=== PATIENT | female | born 1950 | race Caucasian/White ===

== ENCOUNTER 2017-09-21 22:37 | Inpatient (IN) | payer MEDICARE, OTHER ==
[~2017-09-21] VITALS: Ht 149.9 cm; Wt 53.7 kg
[~2017-09-21 22:37] MED LIST: ALEN70 PO; ASPI81CH PO; ASPI81EC PO; CALCAVITD PO; CENTRUM SILVER1 EAC2 PO; ERGO50000 PO; HYDCHL25 PO; MULVITMINF PO; OMEP20ER PO; POTCHL20ER PO; SIMV40 PO; VERA180ERA PO; Verapamil ER200 MG PO
[2017-09-21] MEDS ORDERED: ALEN70 PO (23:11)
[2017-09-21] MEDS ORDERED: FISH OIL + D31 EACH (23:11)
[2017-09-21] MEDS ORDERED: LOSA25 PO (23:11)
[2017-09-21 23:17] LABS: BASOPHILS ABSOLUTE AUTO 0.04 K/mm3 (0.00-0.23); BASOPHILS PERCENT AUTO 0 % (0-2); EOSINOPHILS ABSOLUTE AUTO 0.01 K/mm3 (0.00-0.68); EOSINOPHILS PERCENT AUTO 0 % (0-6); Hemoglobin 15.8 g/dL (11.5-16.0); IMMATURE GRAN ABSOLUTE AUTO 0.06 K/mm3 (0.00-0.10); IMMATURE GRAN PERCENT AUTO 1 % (0-1); LYMPHOCYTES ABSOLUTE AUTO 0.95 K/mm3 (0.84-5.20); LYMPHOCYTES PERCENT AUTO 7 % (21-46); MONOCYTES ABSOLUTE AUTO 0.72 K/mm3 (0.16-1.47); MONOCYTES PERCENT AUTO 6 % (4-13); Mean Corpuscular HGB 32.1 pg (26.0-34.0); Mean Corpuscular HGB Conc 35.9 g/dL (31.5-36.5); Mean Corpuscular Volume 89 fL (80-100); Mean Platelet Volume 9.1 fL (9.1-12.4); NEUTROPHILS ABSOLUTE AUTO 11.35 K/mm3 (1.96-9.15); NEUTROPHILS PERCENT AUTO 86 % (41-73); Platelet Count 337 K/mm3 (150-400); RDW Coefficient Variation 11.2 % (11.7-14.2); RDW Standard Deviation 36.4 fL (35.1-46.3); Red Blood Cell Count 4.92 M/mm3 (3.80-5.20); White Blood Cell Count 13.13 K/mm3 (4.00-11.30)
[2017-09-21 23:31] LABS: Alanine Aminotransfer (ALT/SGP 397 U/L (12-78); Albumin, Blood 3.8 g/dL (3.4-5.0); Albumin/Globulin Ratio 0.8 (0.8-1.8); Alk Phos 137 U/L (50-136); Anion Gap 14 mmol/L (6-16); Aspartate Aminotrans (AST/SGOT 364 U/L (12-37); Bilirubin, Total 1.9 mg/dL (0.1-1.0); Blood Urea Nitrogen 14 mg/dL (8-24); Bun/Creatinine Ratio 23.9 (12.0-20.0); CO2, Blood 16 mmol/L (21-32); Chloride, Blood 102 mmol/L (98-108); Creatinine, Blood 0.59 mg/dL (0.40-1.00); Globulin, Blood 4.5 g/dL (2.2-4.0); Glomerular Filtration Rate >60 (60-); Glucose, Blood 134 mg/dL (70-99); Potassium, Blood 4.3 mmol/L (3.5-5.5); Sodium, Blood 132 mmol/L (136-145); Total Protein, Blood 8.3 g/dL (6.4-8.2); Troponin I <0.015 ng/mL (0.000-0.040)
[2017-09-22 01:35] LABS: Source, Urine Clean Catch
[2017-09-22 01:38] LABS: Bilirubin, Urine Neg (Neg); Blood, Urine 1+ (Neg); Glucose Qualitative, Urine Neg (Neg); Ketones, Urine 3+ (Neg); Leukocyte Esterase, Urine 1+ (Neg); Nitrite, Urine Neg (Neg); Protein, Urine 2+ (Neg); Specific Gravity, Urine 1.015 (1.003-1.022); Urobilinogen, Urine 1+ (Normal); pH, Urine 6.5 (5.0-8.0)
[2017-09-22 01:42] LABS: Color, Urine Yellow (P-Yellow)
[2017-09-22 01:52] LABS: Appearance, Urine Hazy (Clear)
[2017-09-22 01:53] LABS: Amorphous Light (0-Heavy); Bacteria Few /hpf; Mucus Light (0-Heavy); Red Blood Cells, Urine Rare /hpf (0-2); Squamous Epithelial Cells Rare /hpf (Few); Transitional Epithelial Cells Few /hpf (0-Rare)
[2017-09-22 03:05] LABS: BASOPHILS ABSOLUTE AUTO 0.02 K/mm3 (0.00-0.23); BASOPHILS PERCENT AUTO 0 % (0-2); EOSINOPHILS ABSOLUTE AUTO 0.01 K/mm3 (0.00-0.68); EOSINOPHILS PERCENT AUTO 0 % (0-6); Hematocrit 42.9 % (33.0-51.0); Hemoglobin 15.2 g/dL (11.5-16.0); IMMATURE GRAN ABSOLUTE AUTO 0.03 K/mm3 (0.00-0.10); IMMATURE GRAN PERCENT AUTO 0 % (0-1); LYMPHOCYTES ABSOLUTE AUTO 0.74 K/mm3 (0.84-5.20); LYMPHOCYTES PERCENT AUTO 8 % (21-46); MONOCYTES ABSOLUTE AUTO 0.51 K/mm3 (0.16-1.47); MONOCYTES PERCENT AUTO 5 % (4-13); Mean Corpuscular HGB 32.7 pg (26.0-34.0); Mean Corpuscular HGB Conc 35.4 g/dL (31.5-36.5); Mean Corpuscular Volume 92 fL (80-100); NEUTROPHILS ABSOLUTE AUTO 8.49 K/mm3 (1.96-9.15); NEUTROPHILS PERCENT AUTO 87 % (41-73); Platelet Count 216 K/mm3 (150-400); RDW Coefficient Variation 11.5 % (11.7-14.2); RDW Standard Deviation 38.9 fL (35.1-46.3); Red Blood Cell Count 4.65 M/mm3 (3.80-5.20)
[2017-09-22 03:19] LABS: Anion Gap 9 mmol/L (6-16); Blood Urea Nitrogen 13 mg/dL (8-24); Bun/Creatinine Ratio 24.7 (12.0-20.0); CO2, Blood 22 mmol/L (21-32); Calcium, Blood 8.3 mg/dL (8.5-10.1); Chloride, Blood 106 mmol/L (98-108); Creatinine, Blood 0.53 mg/dL (0.40-1.00); Glomerular Filtration Rate >60 (60-); Glucose, Blood 117 mg/dL (70-99); Potassium, Blood 4.1 mmol/L (3.5-5.5); Sodium, Blood 137 mmol/L (136-145)
== END 2017-09-23 12:45 | disposition home or self-care (01) | DRG 389 ==
LOC: ER 22:37 → SURS 09-22 00:51
PROVIDERS: Emergency Medicine; Hospitalist
DX: K56.600 Partial intestinal obstruction, unspecified as to cause (principal); R65.10 Systemic inflammatory response syndrome (SIRS) of non-infectious origin without acute organ dysfunction; Z93.2 Ileostomy status; Z93.3 Colostomy status; I10 Essential (primary) hypertension; E78.00 Pure hypercholesterolemia, unspecified; M81.0 Age-related osteoporosis without current pathological fracture; Z79.82 Long term (current) use of aspirin; Z79.83 Long term (current) use of bisphosphonates; Z79.899 Other long term (current) drug therapy; Z85.038 Personal history of other malignant neoplasm of large intestine
CPT/HCPCS: 36415; 74018; 74176; 80048; 80053; 81001; 83605; 83690; 83735; 84484; 85025; 87086; 93005; 93010; 96361; 96374; 96375; 96376; 99285; C9113; J0295; J2405; J2543; J2550; J3010; J3480; J7030

== ENCOUNTER → 2018-12-03 | Outpatient (CLI) | payer MEDICARE, OTHER ==
[~2018-12-03] MED LIST changes: +Aspirin EC81 MG PO; +BENZ100A PO; +CALCIUM 600 +1 EAC1 PO; +FISH OIL + D31 EACH; +FISH OIL 1,2001 EACH PO; +LOSA25 PO; +MULTI VITAMIN1 EACH PO; +TURMERIC 500 M1 EACH PO; +VERA120ERB PO; +VITAMIN D32000 UNIT PO
== END | disposition home or self-care (01) ==
LOC: LAB SHORT 11:20 → LAB 11:20
DX: Z15.09 Genetic susceptibility to other malignant neoplasm (principal)
CPT/HCPCS: 88108

== ENCOUNTER 2018-12-17 15:48 | Inpatient (IN) | payer MEDICARE, OTHER ==
[~2018-12-17] VITALS: Ht 149.9 cm; Wt 49.9 kg
[~2018-12-17 15:48] MED LIST changes: -BENZ100A PO
[2018-12-17 16:32] LABS: BASOPHILS ABSOLUTE AUTO 0.03 K/mm3 (0.00-0.23); BASOPHILS PERCENT AUTO 0 % (0-2); EOSINOPHILS ABSOLUTE AUTO 0.01 K/mm3 (0.00-0.68); EOSINOPHILS PERCENT AUTO 0 % (0-6); Hematocrit 44.5 % (33.0-51.0); Hemoglobin 15.4 g/dL (11.5-16.0); IMMATURE GRAN ABSOLUTE AUTO 0.03 K/mm3 (0.00-0.10); IMMATURE GRAN PERCENT AUTO 0 % (0-1); LYMPHOCYTES ABSOLUTE AUTO 1.23 K/mm3 (0.84-5.20); LYMPHOCYTES PERCENT AUTO 12 % (21-46); MONOCYTES PERCENT AUTO 5 % (4-13); Mean Corpuscular HGB 32.2 pg (26.0-34.0); Mean Corpuscular HGB Conc 34.6 g/dL (31.5-36.5); Mean Corpuscular Volume 93 fL (80-100); NEUTROPHILS ABSOLUTE AUTO 8.14 K/mm3 (1.96-9.15); NEUTROPHILS PERCENT AUTO 82 % (41-73); Platelet Count 287 K/mm3 (150-400); RDW Coefficient Variation 11.7 % (11.7-14.2); RDW Standard Deviation 40.4 fL (35.1-46.3); Red Blood Cell Count 4.78 M/mm3 (3.80-5.20); White Blood Cell Count 9.94 K/mm3 (4.00-11.30)
[2018-12-17 16:51] LABS: Alanine Aminotransfer (ALT/SGP 171 U/L (12-78); Alk Phos 124 U/L (50-136); Anion Gap 12 mmol/L (6-16); Aspartate Aminotrans (AST/SGOT 138 U/L (12-37); Bilirubin, Total 1.1 mg/dL (0.1-1.0); Blood Urea Nitrogen 12 mg/dL (8-24); Bun/Creatinine Ratio 20.8 (12.0-20.0); CO2, Blood 21 mmol/L (21-32); Calcium, Blood 9.9 mg/dL (8.5-10.1); Chloride, Blood 104 mmol/L (98-108); Creatinine, Blood 0.58 mg/dL (0.40-1.00); Globulin, Blood 4.2 g/dL (2.2-4.0); Glomerular Filtration Rate >60 (60-); Glucose, Blood 135 mg/dL (70-99); Potassium, Blood 3.5 mmol/L (3.5-5.5); Sodium, Blood 137 mmol/L (136-145); Total Protein, Blood 8.2 g/dL (6.4-8.2)
[2018-12-17 18:18] LABS: Source, Urine Catheter
[2018-12-17] MEDS ORDERED: BENZ100A PO (18:27)
[2018-12-17 18:31] LABS: Appearance, Urine Clear (Clear); Bilirubin, Urine Neg (Neg); Blood, Urine 2+ (Neg); Color, Urine Yellow (P-Yellow); Glucose Qualitative, Urine Neg (Neg); Ketones, Urine Neg (Neg); Leukocyte Esterase, Urine 2+ (Neg); Nitrite, Urine Neg (Neg); Protein, Urine 1+ (Neg); Urobilinogen, Urine NORM (Normal)
[2018-12-17 18:45] LABS: Squamous Epithelial Cells Few /hpf (Few)
[2018-12-17 18:46] LABS: Bacteria Mod /hpf
[2018-12-18 05:15] LABS: BASOPHILS ABSOLUTE AUTO 0.02 K/mm3 (0.00-0.23); BASOPHILS PERCENT AUTO 0 % (0-2); EOSINOPHILS PERCENT AUTO 0 % (0-6); Hematocrit 40.3 % (33.0-51.0); Hemoglobin 13.6 g/dL (11.5-16.0); IMMATURE GRAN ABSOLUTE AUTO 0.02 K/mm3 (0.00-0.10); IMMATURE GRAN PERCENT AUTO 0 % (0-1); LYMPHOCYTES ABSOLUTE AUTO 0.71 K/mm3 (0.84-5.20); LYMPHOCYTES PERCENT AUTO 7 % (21-46); MONOCYTES PERCENT AUTO 7 % (4-13); Mean Corpuscular HGB 32.2 pg (26.0-34.0); Mean Corpuscular HGB Conc 33.7 g/dL (31.5-36.5); Mean Platelet Volume 9.5 fL (9.1-12.4); NEUTROPHILS ABSOLUTE AUTO 8.93 K/mm3 (1.96-9.15); NEUTROPHILS PERCENT AUTO 86 % (41-73); Platelet Count 222 K/mm3 (150-400); RDW Standard Deviation 42.3 fL (35.1-46.3); Red Blood Cell Count 4.22 M/mm3 (3.80-5.20); White Blood Cell Count 10.38 K/mm3 (4.00-11.30)
[2018-12-18 05:19] LABS: Mean Corpuscular Volume 96 fL (80-100)
[2018-12-18 05:42] LABS: Alanine Aminotransfer (ALT/SGP 233 U/L (12-78); Albumin, Blood 3.2 g/dL (3.4-5.0); Albumin/Globulin Ratio 0.9 (0.8-1.8); Alk Phos 105 U/L (50-136); Anion Gap 6 mmol/L (6-16); Aspartate Aminotrans (AST/SGOT 126 U/L (12-37); Bilirubin, Total 1.6 mg/dL (0.1-1.0); Blood Urea Nitrogen 11 mg/dL (8-24); Bun/Creatinine Ratio 18.5 (12.0-20.0); CO2, Blood 26 mmol/L (21-32); Calcium, Blood 8.8 mg/dL (8.5-10.1); Chloride, Blood 107 mmol/L (98-108); Globulin, Blood 3.4 g/dL (2.2-4.0); Glomerular Filtration Rate >60 (60-); Glucose, Blood 117 mg/dL (70-99); Potassium, Blood 3.7 mmol/L (3.5-5.5); Sodium, Blood 139 mmol/L (136-145); Total Protein, Blood 6.6 g/dL (6.4-8.2)
--- NOTE | 2018-12-18 18:40 | NUR ---
SHIFT SUMMARY PT WAS MISERABLE THE FIRST HALF OF MY SHIFT BUT WAS ABLE TO BEGIN HAVING LOOSE STOOL AND PASSING GAS. AFTER THIS HAPPENED, PT BECAME MUCH HAPPIER, REPORTS BEING PAIN FREE AND NAUSEA FREE. UP MOVING IN ROOM AND TOLERATING CLEAR LQ DIET.
--- NOTE | 2018-12-19 07:17 | NUR ---
SUMMARY PT WITH BARKY COUGH THIS AM. AMBULATING IN HALLS. FEELS"GOOD" NO REPORTS OF NAUSEA THIS SHIFT.
--- NOTE | 2018-12-19 11:21 | NUR ---
DISCHARGE INSTRUCTIONS REVIEWED WITH PATIENT. PATIENT HAS NO QUESTIONS REGARDING DISCHARGE. PATIENT WAITING FOR FAMILY TO ARRIVE TO TRANSPORT HER HOME
--- NOTE | 2018-12-19 12:03 | NUR ---
DISCHARGED TO HOME WITH
== END 2018-12-19 12:04 | disposition home or self-care (01) | DRG 390 ==
LOC: ER 15:48 → ERHOLD 15:49 → SURS 20:26
PROVIDERS: Physician Assistant; ADMIT Surgery
PROC: 0D758ZZ Dilation of Esophagus, Via Natural or Artificial Opening Endoscopic (ICD-10-PCS; principal; 2018-12-15)
PROC: 0DB58ZX Excision of Esophagus, Via Natural or Artificial Opening Endoscopic, Diagnostic (ICD-10-PCS; principal; 2018-12-15)
PROC: 0DB68ZX Excision of Stomach, Via Natural or Artificial Opening Endoscopic, Diagnostic (ICD-10-PCS; principal; 2018-12-15)
DX: K56.609 Unspecified intestinal obstruction, unspecified as to partial versus complete obstruction (principal); Z79.82 Long term (current) use of aspirin; Z85.038 Personal history of other malignant neoplasm of large intestine; Z90.49 Acquired absence of other specified parts of digestive tract; Z92.3 Personal history of irradiation; I10 Essential (primary) hypertension; Z85.42 Personal history of malignant neoplasm of other parts of uterus; M19.90 Unspecified osteoarthritis, unspecified site; Z93.2 Ileostomy status; Z15.09 Genetic susceptibility to other malignant neoplasm
CPT/HCPCS: 36415; 74019; 74176; 80053; 81001; 83690; 84484; 85025; 87086; 88305; 88312; 88342; 93005; 93010; 96374; 96375; 96376; 99285-25; C9113; J1170; J2405; J2550; J2704; J7120

== ENCOUNTER 2020-10-22 01:50 | Inpatient (IN) | payer MEDICARE, OTHER ==
[~2020-10-22] VITALS: Ht 149.9 cm; Wt 54.0 kg
[~2020-10-22 01:50] MED LIST changes: +BENZ100A PO
[2020-10-22 02:40] LABS: BASOPHILS ABSOLUTE AUTO 0.04 K/mm3 (0.00-0.23); BASOPHILS PERCENT AUTO 0 % (0-2); EOSINOPHILS ABSOLUTE AUTO 0.01 K/mm3 (0.00-0.68); EOSINOPHILS PERCENT AUTO 0 % (0-6); Hematocrit 39.7 % (33.0-51.0); Hemoglobin 13.3 g/dL (11.5-16.0); IMMATURE GRAN ABSOLUTE AUTO 0.04 K/mm3 (0.00-0.10); IMMATURE GRAN PERCENT AUTO 0 % (0-1); LYMPHOCYTES ABSOLUTE AUTO 1.57 K/mm3 (0.84-5.20); LYMPHOCYTES PERCENT AUTO 11 % (21-46); MONOCYTES ABSOLUTE AUTO 1.12 K/mm3 (0.16-1.47); MONOCYTES PERCENT AUTO 8 % (4-13); Mean Corpuscular HGB 28.7 pg (26.0-34.0); Mean Corpuscular HGB Conc 33.5 g/dL (31.5-36.5); Mean Corpuscular Volume 86 fL (80-100); Mean Platelet Volume 9.1 fL (9.1-12.4); NEUTROPHILS ABSOLUTE AUTO 11.36 K/mm3 (1.96-9.15); NEUTROPHILS PERCENT AUTO 80 % (41-73); Platelet Count 306 K/mm3 (150-400); RDW Coefficient Variation 13.2 % (11.7-14.2); RDW Standard Deviation 40.9 fL (35.1-46.3); Red Blood Cell Count 4.64 M/mm3 (3.80-5.20); White Blood Cell Count 14.14 K/mm3 (4.00-11.30)
[2020-10-22 02:59] LABS: Alanine Aminotransfer (ALT/SGP 34 U/L (12-78); Albumin, Blood 3.8 g/dL (3.4-5.0); Alk Phos 96 U/L (50-136); Anion Gap 9 mmol/L (6-16); Aspartate Aminotrans (AST/SGOT 21 U/L (12-37); Blood Urea Nitrogen 14 mg/dL (8-24); CO2, Blood 23 mmol/L (21-32); Calcium, Blood 9.5 mg/dL (8.5-10.1); Chloride, Blood 102 mmol/L (98-108); Creatinine, Blood 0.58 mg/dL (0.40-1.00); Globulin, Blood 3.9 g/dL (2.2-4.0); Glomerular Filtration Rate >60 (60-); Glucose, Blood 126 mg/dL (70-99); Potassium, Blood 3.9 mmol/L (3.5-5.5); Sodium, Blood 134 mmol/L (136-145); Total Protein, Blood 7.7 g/dL (6.4-8.2)
--- NOTE | 2020-10-22 09:00 | NUR ---
PT IS A 70YO FEMALE, AOX4. PT CAME IN FOR SBO, NAUSE AND VOMITING. PT HAS AN ILEOSTOMY ON HER RIGHT ABDOMEN. SHE CAME IN WITH C.O OF NO OUTPUT ON HER ILEOSTOMY,N&V, AND ABD PAIN. PT WAS MEDICATED FOR PAIN AND FOR ANTINAUSEA AT ED; N&V IMPROVING. PT IS RECEIVING NS @100ML/HR CONTINUOS. PT ALSO HAS NG TUBE PLACED AT ED THAT IS DRAINING AND SUCTION INTERMITTENT. PT DENIES ANY PAIN, SOB. PT BP WAS ELAVATED WITH SBP OF 170'S; HYDRALAZINE GIVEN PER EMAR. PT VS IS NOW WNL. PT CAME IN WITH PT. DR SLATER CONSULTED; NO SURGICAL INTERVENTION OF NOW. PT HAVE A PMH OF COLON CANCER AND ENDOMETRIAL CANCER NOTED. ILEOSTOMY WAS PLACED IN 2014. PT CALLS APPROPRIATELY. PT NOW HAS AN OUTPUT ON HER ILEOSTOMY AND PASSING GAS. DENIES PAIN OR SOB. BED IS IN THE LOWEST POSITION AND CALL LIGHT WITHIN REACH
--- NOTE | 2020-10-22 16:18 | NUR ---
IV INFILTRATION; ALTHOUGH THE IV WAS FLUSHING OKAY AND PATENT. THE PATIENT DEVELOPED SKIN TIGHT WITH FLUIDS ESPECIALLY UNDER HER RIGHT ELBOW, PT RIGHT ARM IS VERY TIGHT; NO LEAKING NOTED, AND PALPABLE PULSE. DENIES PAIN. DR INFORMED IF ULTRASOUND IS NECESSARY- BUT OBSERVATION FOR NOW PER DR. ENCOURAGED THE PT TO ELEVATE THE ARM WITH PILLOW.
--- NOTE | 2020-10-22 16:41 | NUR ---
DC NG TUBE DC'D TUBE PER DR WITH 50ML OUTPUT
--- NOTE | 2020-10-22 17:35 | NUR ---
SHIFT SUMMARY PT AOX4; CALLS APPROPRIATELY. PT IS NOW CLEAR LIQUID DIET AND DC'D NG TUBE; NO SURGICAL INTERVENTION. DC'D FLUID AND ENCOURAGE TO DRINK WATER. PT INFILTRATION SITE ON R FOREARM BETTER AND LESS SWOLLEN. MEDICATED FOR HEADACHE X1. NO C.O OF NAUSEA AND VOMITING. PASSING GAS PER PT, AND ILEOSTOMY HAS OUTPUT. BED IS IN THE LOWEST POSITION AND CALL LIGHT WITHIN REACH
--- NOTE | 2020-10-23 10:16 | NUR ---
PT ALERT AND ORIENTED X4. ON ROOM AIR SATING ABOVE 94%. DENIES CHEST PAIN/PRESSURE. VITAL SIGNS STABLE. PT STATES SHE IS FEELING GOOD AND ANXIOUS TO GET HOME. ILEOSTOMY TO RLQ, WITH GOOD BROWN/LIQUID OUTPUT. DENIES NAUSEA/VOMITING AT THIS TIME. LUNGS SOUNDING CLEAR. NO NEEDS AT THIS TIME. CALL LIGHT IN REACH. WILL CONTINUE TO MONITOR.
--- NOTE | 2020-10-23 14:46 | NUR ---
DISCHARGE: PT DISCHARGED AT 1435 HOME WITH IN TO PICK PT UP. NO ACUTE CHANGES SINCE THIS AM, SEE PREVIOUS NOTE. DISCHARGE INSTRUCTIONS REVIEWED AND QUESTIONS ANSWERED. PT LEFT UNIT VIA WHEELCHAIR WITH PERSONAL BELONGINGS.
== END 2020-10-23 14:40 | disposition home or self-care (01) | DRG 389 ==
LOC: ER 01:50 → MEDS 05:50
PROVIDERS: Emergency Medicine; ADMIT Family Medicine
DX: K56.51 Intestinal adhesions [bands], with partial obstruction (principal); E87.2 Acidosis; E87.1 Hypo-osmolality and hyponatremia; N13.30 Unspecified hydronephrosis; D72.829 Elevated white blood cell count, unspecified; K75.81 Nonalcoholic steatohepatitis (NASH); D18.03 Hemangioma of intra-abdominal structures; I10 Essential (primary) hypertension; M85.80 Other specified disorders of bone density and structure, unspecified site; E78.5 Hyperlipidemia, unspecified; K21.9 Gastro-esophageal reflux disease without esophagitis; M19.90 Unspecified osteoarthritis, unspecified site; Z79.899 Other long term (current) drug therapy; Z79.82 Long term (current) use of aspirin; Z85.038 Personal history of other malignant neoplasm of large intestine; Z93.2 Ileostomy status; Z85.42 Personal history of malignant neoplasm of other parts of uterus; Z90.49 Acquired absence of other specified parts of digestive tract; Z90.710 Acquired absence of both cervix and uterus
CPT/HCPCS: 36415; 74177; 80053; 83605; 85025; 96374-59; 96375-59; 96376-59; 99285-25; A9270; C9113; J0360; J2270; J2405; J7030; Q9967

== ENCOUNTER 2021-01-18 20:13 | Emergency (ER) | payer MEDICARE, OTHER ==
[~2021-01-18] VITALS: Ht 149.9 cm; Wt 49.9 kg
[2021-01-18 21:07] LABS: BASOPHILS ABSOLUTE AUTO 0.03 K/mm3 (0.00-0.23); BASOPHILS PERCENT AUTO 0 % (0-2); EOSINOPHILS ABSOLUTE AUTO 0.01 K/mm3 (0.00-0.68); EOSINOPHILS PERCENT AUTO 0 % (0-6); Hematocrit 44.1 % (33.0-51.0); Hemoglobin 15.3 g/dL (11.5-16.0); IMMATURE GRAN ABSOLUTE AUTO 0.05 K/mm3 (0.00-0.10); IMMATURE GRAN PERCENT AUTO 1 % (0-1); LYMPHOCYTES ABSOLUTE AUTO 0.98 K/mm3 (0.84-5.20); LYMPHOCYTES PERCENT AUTO 14 % (21-46); MONOCYTES PERCENT AUTO 4 % (4-13); Mean Corpuscular HGB 31.1 pg (26.0-34.0); Mean Corpuscular HGB Conc 34.7 g/dL (31.5-36.5); Mean Corpuscular Volume 90 fL (80-100); Mean Platelet Volume 8.9 fL (9.1-12.4); NEUTROPHILS ABSOLUTE AUTO 5.87 K/mm3 (1.96-9.15); NEUTROPHILS PERCENT AUTO 81 % (41-73); Platelet Count 263 K/mm3 (150-400); RDW Coefficient Variation 13.8 % (11.7-14.2); RDW Standard Deviation 45.9 fL (35.1-46.3); Red Blood Cell Count 4.92 M/mm3 (3.80-5.20); White Blood Cell Count 7.24 K/mm3 (4.00-11.30)
[2021-01-18 21:29] LABS: Alanine Aminotransfer (ALT/SGP 57 U/L (12-78); Albumin, Blood 3.8 g/dL (3.4-5.0); Albumin/Globulin Ratio 0.9 (0.8-1.8); Alk Phos 109 U/L (50-136); Anion Gap 9 mmol/L (6-16); Aspartate Aminotrans (AST/SGOT 35 U/L (12-37); Bilirubin, Total 0.7 mg/dL (0.1-1.0); Blood Urea Nitrogen 13 mg/dL (8-24); Bun/Creatinine Ratio 22.6 (12.0-20.0); CO2, Blood 22 mmol/L (21-32); Calcium, Blood 9.2 mg/dL (8.5-10.1); Chloride, Blood 100 mmol/L (98-108); Creatinine, Blood 0.58 mg/dL (0.40-1.00); Globulin, Blood 4.1 g/dL (2.2-4.0); Glomerular Filtration Rate >60 (60-); Glucose, Blood 153 mg/dL (70-99); Potassium, Blood 4.2 mmol/L (3.5-5.5); Sodium, Blood 131 mmol/L (136-145); Total Protein, Blood 7.9 g/dL (6.4-8.2); Troponin I <0.015 ng/mL (0.000-0.040)
[2021-01-19] MEDS ORDERED: MOTION RELIEF25 MG PO (05:32)
== END 2021-01-19 09:40 | disposition home or self-care (01) ==
LOC: ER 20:13
PROVIDERS: Physician Assistant
DX: H81.399 Other peripheral vertigo, unspecified ear (principal); I10 Essential (primary) hypertension; Z79.82 Long term (current) use of aspirin; Z79.899 Other long term (current) drug therapy; Z85.038 Personal history of other malignant neoplasm of large intestine; Z85.42 Personal history of malignant neoplasm of other parts of uterus
CPT/HCPCS: 36415; 70496; 70498; 71046; 80053; 83690; 83880; 84484; 85025; 93005; 93010; 96374; 99284-25; A9270; J2550; J3360; J7030; Q9967

== ENCOUNTER 2021-01-19 18:58 | Inpatient (IN) | payer MEDICARE, OTHER ==
[~2021-01-19] VITALS: Ht 149.9 cm; Wt 51.0 kg
[~2021-01-19 18:58] MED LIST changes: +MOTION RELIEF25 MG PO
--- NOTE | 2021-01-20 17:00 | NUR ---
Update 01/20/21: Per chart reivew with Dr. Shah, pt. not yet appropriate for discharge. Per PT chintan, pt. might need outpatient PT or PT depedning on progress. Pt. will be scheduled for hospital follow-up appointment by [facility] team if she discharges over the weekend.
--- NOTE | 2021-01-20 17:04 | NUR ---
PATIENT IS ALERT AND ORIENTED. SHE C/O ACUTE RIGHT HIP PAIN, MEDICATED PER EMAR. PATIENT BECOMES DIZZY AND NAUSEOUS WITH MOVEMENT. SHE WORKED WITH PT TODAY, PT PERFORMED MAX MANEUVERS ON THE PATIENT. PATIENT HAS SLEPT IN BED MOST OF THE SHIFT. SHE DOES NOT HAVE AN APPETITE. HER VISITED HER FOR A COUPLE HOURS WHILE SHE SLEPT. 1PA WITH FWW TO THE BATHROOM. WILL CONTINUE TO MONITOR
--- NOTE | 2021-01-21 04:54 | NUR ---
SHIFT SUMMAARY NO ACUTE CHANGES THIS SHIFT, CONTINUED NAUSEA W/LITTLE TO NO RELIEF FROM ANTIMETICS, MEDICATED 1X FOR C/O R HIP & L THIGH PAIN, SLEEPING AT THIS TIME, CALL LIGHT IN REACH, WILL CONT TO MONTIOR UNTIL REPORT GIVEN TO DAY RN.
[2021-01-21 05:33] LABS: BASOPHILS ABSOLUTE AUTO 0.01 K/mm3 (0.00-0.23); BASOPHILS PERCENT AUTO 0 % (0-2); EOSINOPHILS PERCENT AUTO 0 % (0-6); Hematocrit 43.1 % (33.0-51.0); Hemoglobin 14.4 g/dL (11.5-16.0); IMMATURE GRAN ABSOLUTE AUTO 0.05 K/mm3 (0.00-0.10); IMMATURE GRAN PERCENT AUTO 0 % (0-1); LYMPHOCYTES ABSOLUTE AUTO 0.74 K/mm3 (0.84-5.20); LYMPHOCYTES PERCENT AUTO 6 % (21-46); MONOCYTES ABSOLUTE AUTO 1.18 K/mm3 (0.16-1.47); MONOCYTES PERCENT AUTO 10 % (4-13); Mean Corpuscular HGB 31.4 pg (26.0-34.0); Mean Corpuscular HGB Conc 33.4 g/dL (31.5-36.5); Mean Corpuscular Volume 94 fL (80-100); NEUTROPHILS ABSOLUTE AUTO 10.23 K/mm3 (1.96-9.15); NEUTROPHILS PERCENT AUTO 84 % (41-73); Platelet Count 190 K/mm3 (150-400); RDW Coefficient Variation 14.4 % (11.7-14.2); RDW Standard Deviation 50.1 fL (35.1-46.3); Red Blood Cell Count 4.58 M/mm3 (3.80-5.20); White Blood Cell Count 12.21 K/mm3 (4.00-11.30)
[2021-01-21 06:08] LABS: Alanine Aminotransfer (ALT/SGP 34 U/L (12-78); Albumin, Blood 3.4 g/dL (3.4-5.0); Albumin/Globulin Ratio 0.9 (0.8-1.8); Alk Phos 79 U/L (50-136); Anion Gap 10 mmol/L (6-16); Aspartate Aminotrans (AST/SGOT 33 U/L (12-37); Bilirubin, Total 1.2 mg/dL (0.1-1.0); Blood Urea Nitrogen 14 mg/dL (8-24); Bun/Creatinine Ratio 17.9 (12.0-20.0); CO2, Blood 19 mmol/L (21-32); Calcium, Blood 8.6 mg/dL (8.5-10.1); Chloride, Blood 107 mmol/L (98-108); Creatinine, Blood 0.78 mg/dL (0.40-1.00); Globulin, Blood 3.9 g/dL (2.2-4.0); Glomerular Filtration Rate >60 (60-); Glucose, Blood 124 mg/dL (70-99); Magnesium, Blood 2.2 mg/dL (1.6-2.4); Potassium, Blood 4.2 mmol/L (3.5-5.5); Sodium, Blood 136 mmol/L (136-145); Total Protein, Blood 7.3 g/dL (6.4-8.2)
--- NOTE | 2021-01-21 17:59 | NUR ---
PATIENT CONTINUES TO FEEL MISERABLE AND HAS BEEN LAYING DOWN SLEEPING THE MAJORITY OF THE DAY. WHEN SHE IS AWAKE SHE TENDS TO BE DRY HEAVING. BPs HAVE BEEN EXTREMELY ELEVATED; THIS MORNING I ADMINISTERED JUST HER SCHEDULED BP MEDS HOWEVER THIS AFTERNOON I GAVE THE PATIENT IV HYDRALAZINE PER EMAR. THE IV HYDRALAZINE WAS ESPECIALLY EFFECTIVE. 4MG IV ZOFRAN ONLY SEEMS EFFECTIVE FOR APPROX 1-2 HOURS AT MOST. PATIENT IS INDEPENDENT IN HER ROOM. CONT OF B/B. NO APPETITE. CALL LIGHT WITHIN REACH.
--- NOTE | 2021-01-22 04:25 | NUR ---
SHIFT SUMMARY PATIENT HAD NO ACUTE CHANGES OBSERVED. AXO X 4 AND SBA TO BR. NO VERTIGO EVENTS. DENIES SOB AND N/V. HYPERTENSIVE AND IV APRESOLINE 10 MG GIVEN PER EMAR. TAKES MEDICATION WHOLE WITH WATER. PIV REMAINS INTACT. NS INFUSING AT 50 mL/HR. ILEOSTOMY SELF CARE. WANTING TO REST IN BED. REPORTS IF SHE DRINKS TOO MUCH WATER WILL GET DRY HEAVES. NONE OBSERVED. CALL LIGHT IN REACH. BED IN LOWEST POSITION. WILL CONTINUE TO MONITOR UNTIL DAY SHIFT NURSE ASSUMES CARE.
--- NOTE | 2021-01-22 04:41 | NUR ---
BP 180/91 AND IV APRESOLINE 10 MG GIVEN PER EMAR BP 159/83 ON RECHECK.
[2021-01-22 05:31] LABS: Bun/Creatinine Ratio 15.3 (12.0-20.0); Creatinine, Blood 1.96 mg/dL (0.40-1.00); Potassium, Blood 3.7 mmol/L (3.5-5.5)
[2021-01-22 08:35] LABS: Source, Urine Catheter
[2021-01-22 08:42] LABS: Bilirubin, Urine Neg (Neg); Blood, Urine 5+ (Neg); Glucose Qualitative, Urine Neg (Neg); Ketones, Urine 1+ (Neg); Leukocyte Esterase, Urine 1+ (Neg); Nitrite, Urine Neg (Neg); Protein, Urine 2+ (Neg); Specific Gravity, Urine 1.015 (1.003-1.022); Urobilinogen, Urine NORM (Normal)
[2021-01-22 08:50] LABS: Appearance, Urine Cloudy (Clear); Color, Urine Yellow (P-Yellow)
[2021-01-22 09:00] LABS: Bacteria Rare /hpf; Squamous Epithelial Cells Rare /hpf (Few); White Blood Cells, Urine TNTC /hpf (0-5)
--- NOTE | 2021-01-22 15:28 | NUR ---
PATIENT HAS BEEN DOING BETTER TODAY IN SOME WAYS, AND WORSE IN OTHER WAYS. BP THIS AM WAS ELEVATED AGAIN AND PATIENT WAS JUST GIVEN SCHEDULED MORNING BP MEDS (NO PRN HYPERTENSIVE). PATIENT WAS THEN TAKEN DOWN FOR AN MRI AND DR LEAHY HAD PLACED NEW ORDERS TO ADMINISTER PO HYDRALAZINE TID. WHEN THE PATIENT RETURNED TO HER ROOM I RECHECKED HER BP AND IT WAS 100/[address]. [address] LEAHY AND ASKED IF HE WANTED ME TO ADMINISTER THAT FIRST DOSE OF HYDRALAZINE AND HE SAID TO HOLD IT IF SBP <110, SO IT WAS HELD. PATIENT HAS STATED THAT HER NAUSEA AND DIZZINESS HAS GONE AWAY HOWEVER WOKE WITH A SHARP PAIN TO THE LEFT SIDE OF HER ABDOMEN. IT WAS REALIZED THAT THE PATIENT HAD NOT BEEN ABLT TO VOID ALL NIGHT EVEN THOUGH SHE HAD ATTEMPTED TO SEVERAL TIMES. I BLADDED SCANNED THE PATIENT AND IT INDICATED CLOSE TO 1L OF URINE IN THE PATIENTS BLADDER. DR LEAHY NOTIFIED OF THIS AND ORDERS PROVIDED TO PLACE A PARTIDA CATH; U/A PER PROTOCOL SENT TO LAB AND IS SUSPICIOUS FOR INFECTION. 1L OF URINE DRAINED VIA PATRIDA AND THE URINE WAS NOTED TO BEING OF DARK, BROWNISH COLOR. DR LEAHY HAD CONTEMPLATED SENDING THE PATIENT HOME TODAY HOWEVER STATED THAT HER RENAL FUNCTION HAD TAKEN A DIVE AND WOULD NEED TO REMAIN IN THE HOSPITAL ONE MORE NIGHT. PATIENT STATES THAT SHE FELT MUCH RELIEF FROM THE EMPTYING OF HER BLADDER, HOWEVER DR LEAHY SHORTLY THERE-AFTER GAVE ORDERS TO D/C THE PARTIDA AND STRAIT CATH NEEDED FOR RETENTION >300cc. THIS WAS EXPLAINED TO PATIENT. PATIENT PLEASANT AND COOPERATIVE WITH CARE. HAD DENIED ANY FURTHER PAIN/DISCOMFORT. SHE IS CURRENTLY IN HER ROOM VISITING WITH HER . CALL LIGHT IS WITHIN REACH.
--- NOTE | 2021-01-22 19:00 | NUR ---
ASSUMED CARE RECEIVED REPORT FROM ROXANNA LATIF. PT RESTING, IN NAD. SCOPOLAMINE PATCH NOTED BEHIND RT EAR, AND REMOVED D/T C/O URINARY RETENTION; PT TO BE STRAIGHT CATHED BY DAY RN. NO OTHER ACUTE NEEDS ASSESSED AT THIS TIME. CALL LIGHT, POSSESSIONS IN REACH, BED IN LOW AND LOCKED POSITION.
--- NOTE | 2021-01-22 22:00 | NUR ---
SPOKE TO DR. BEACH REGARDING PT'S PARTIDA CATHETER PLACEMENT R/T URINARY RETENTION S/P BLADDER SCAN AND CONCERN FOR FUTURE URETHRAL TRAUMA WITH FUTURE STRAIGHT CATHETERIZATIONS. ORDERS RECEIVED. CONTINUE TO MONITOR.
--- NOTE | 2021-01-23 04:13 | NUR ---
PRE PRESS PROOFER SUMMARY PT RESTING, IN NAD. NO ACUTE CHANGES TO REPORT OVERNIGHT, NO C/O DIZZINESS, URINARY DISCOMFORT OR ABD PAIN. PARTIDA CATHETER PATENT AND DRAINING DARK RED URINE TO GRAVITY, TUBING FREE OF KINKS. DENIES PAIN. NO ACUTE NEEDS ASSESSED AT THIS TIME. CALL LIGHT, POSSESSIONS IN REACH. IVF INFUSING ORDERED. WILL CONTINUE TO PROVIDE CARE NEEDED UNTIL REPORT GIVEN TO ONCOMING RN.
[2021-01-23 04:59] LABS: BASOPHILS ABSOLUTE AUTO 0.03 K/mm3 (0.00-0.23); BASOPHILS PERCENT AUTO 0 % (0-2); EOSINOPHILS ABSOLUTE AUTO 0.08 K/mm3 (0.00-0.68); EOSINOPHILS PERCENT AUTO 1 % (0-6); Hematocrit 34.6 % (33.0-51.0); Hemoglobin 11.8 g/dL (11.5-16.0); IMMATURE GRAN ABSOLUTE AUTO 0.03 K/mm3 (0.00-0.10); IMMATURE GRAN PERCENT AUTO 0 % (0-1); LYMPHOCYTES PERCENT AUTO 18 % (21-46); MONOCYTES ABSOLUTE AUTO 0.93 K/mm3 (0.16-1.47); MONOCYTES PERCENT AUTO 11 % (4-13); Mean Corpuscular HGB 31.4 pg (26.0-34.0); Mean Corpuscular HGB Conc 34.1 g/dL (31.5-36.5); Mean Corpuscular Volume 92 fL (80-100); NEUTROPHILS ABSOLUTE AUTO 5.78 K/mm3 (1.96-9.15); NEUTROPHILS PERCENT AUTO 69 % (41-73); Platelet Count 204 K/mm3 (150-400); RDW Standard Deviation 47.9 fL (35.1-46.3); Red Blood Cell Count 3.76 M/mm3 (3.80-5.20); White Blood Cell Count 8.35 K/mm3 (4.00-11.30)
[2021-01-23 05:19] LABS: Anion Gap 7 mmol/L (6-16); Blood Urea Nitrogen 17 mg/dL (8-24); Bun/Creatinine Ratio 24.8 (12.0-20.0); CO2, Blood 25 mmol/L (21-32); Chloride, Blood 108 mmol/L (98-108); Creatinine, Blood 0.69 mg/dL (0.40-1.00); Glomerular Filtration Rate >60 (60-); Glucose, Blood 83 mg/dL (70-99); Sodium, Blood 140 mmol/L (136-145)
[2021-01-23] MEDS ORDERED: TAMS.4ER PO (16:28)
[2021-01-23] MEDS ORDERED: Acetaminophen650 M1 PO (16:28)
[2021-01-23] MEDS ORDERED: ELIQUIS5 M2 PO (16:35)
--- NOTE | 2021-01-23 16:42 | NUR ---
Update 01/23/2021: Pt. appropriate for discharge per Dr. Hoffman. Discussed discharge planning with pt. Denied need for DME at home. Single story residence. Denied concerns for safety or barriers to discharge. Strong family support. Patient's will provide transportation and order picker medications. Pt. scheduled for hospital F/U on 01/26/21 at 11:40 am with Gómez SARKAR. Denied any additional needs. Pt. provided with discharge instructions including hospital F/U date/time. Discussion Notes 1. Caregiver or other patient contact: [facility] - [phone] 2. Prior Level of Function (PLOF): INDIPENDENT 3. Level of Function at discharge: INDIPENDENT 4. Current living arrangements: HOME WITH 5. Transportation: BURT 6. Discharge needs: NONE INDICATED 7. Barriers to discharge: NONE INDICATED 8. Discharge plan: DISCHARGE HOME WITH CAREGIVER. FOLLOW-UP WITH PCP TEAM SCHEDULED. 9. PCP: DR. KONG 10. Hospital follow-up date & time: 01/26/21 AT 11:40 AM WITH GÓMEZ SARKAR 11. Specialist appointments: 12. Discharged to: HOME - [address], [place] [address] 13. [facility] CALL: TO PATIENT AT . PERMISSION TO SPEAK WITH WELL.
--- NOTE | 2021-01-23 17:31 | NUR ---
DISCHARGE SUMMARY PATIENT DISCHARGED TO HOME. PATIENT ALERT AND ORIENTED, INDEPENDENT IN THE ROOM. PARTIDA CATHETER DC'D THIS AM. PATIENT VOIDED APPROXIMATELY 150 ML SEVERAL HOURS LATER. BLADDER SCAN REVEALED [address] NOTIFIED, ORDER FOR PARTIDA REPLACEMENT AND DC WITH PARTIDA RECEIVED. PARTIDA REPLACED, PATIENT DEMONSTRATED CHANGE FROM LEG BAG TO LARGER NIGHT BAG. PATIENT DRESSED INDEPENDENTLY. PATIENT AND IN ROOM FOR DISCHARGE INSTRUCTIONS. NO QUESTIONS AT THIS TIME. IV REMOVED PRIOR TO DISCHARGE. PATIENT TO VEHICLE VIA WHEELCHAIR BY NURSE.
== END 2021-01-23 17:11 | disposition home or self-care (01) | DRG 683 ==
LOC: ER 18:58 → MEDS 18:59
PROVIDERS: Hospitalist; ADMIT Internal Medicine
DX: N17.9 Acute kidney failure, unspecified (principal); E87.1 Hypo-osmolality and hyponatremia; I82.811 Embolism and thrombosis of superficial veins of right lower extremity; R42 Dizziness and giddiness; I10 Essential (primary) hypertension; M19.90 Unspecified osteoarthritis, unspecified site; I16.0 Hypertensive urgency; E87.6 Hypokalemia; R31.9 Hematuria, unspecified; N32.89 Other specified disorders of bladder; R33.0 Drug induced retention of urine; T45.0X5A Adverse effect of antiallergic and antiemetic drugs, initial encounter; T44.3X5A Adverse effect of other parasympatholytics [anticholinergics and antimuscarinics] and spasmolytics, initial encounter; R32 Unspecified urinary incontinence; M81.0 Age-related osteoporosis without current pathological fracture; N13.9 Obstructive and reflux uropathy, unspecified; M54.16 Radiculopathy, lumbar region; M62.81 Muscle weakness (generalized); Z85.038 Personal history of other malignant neoplasm of large intestine; Z85.89 Personal history of malignant neoplasm of other organs and systems; Z79.899 Other long term (current) drug therapy; Z79.82 Long term (current) use of aspirin; Z79.83 Long term (current) use of bisphosphonates; Z93.2 Ileostomy status
CPT/HCPCS: 36415; 51702; 70496; 70498; 70551; 72100; 72148; 73502; 76770; 80048; 80053; 81001; 83735; 84100; 85025; 87086; 93971; 96372; 96374; 96375; 96376; 97110; 97112; 97116; 97162; 99284; A9270; G0378; J0360; J1650; J2405; J2550; J3010; J3360; J3480; J7030; J7120; Q9967

== ENCOUNTER → 2021-01-25 | Outpatient (CLI) | payer MEDICARE, OTHER ==
[~2021-01-25] MED LIST changes: +Acetaminophen650 M1 PO; +ELIQUIS5 M2 PO; +TAMS.4ER PO
== END | disposition home or self-care (01) ==
LOC: LAB SHORT 07:21 → LAB 07:21
DX: Z15.09 Genetic susceptibility to other malignant neoplasm (principal)
CPT/HCPCS: 88108

== ENCOUNTER → 2021-03-02 | Outpatient (CLI) | payer MEDICARE, OTHER | END | disposition home or self-care (01) | LOC: LAB SHORT 11:47 | DX: N39.0 Urinary tract infection, site not specified (principal) | CPT/HCPCS: 87077; 87086; 87186 ==

== ENCOUNTER 2021-10-28 21:55 | Inpatient (IN) | payer MEDICARE, OTHER ==
[~2021-10-28] VITALS: Ht 149.9 cm; Wt 49.9 kg
[2021-10-28 22:34] LABS: BASOPHILS ABSOLUTE AUTO 0.04 K/mm3 (0.00-0.23); BASOPHILS PERCENT AUTO 0 % (0-2); EOSINOPHILS PERCENT AUTO 0 % (0-6); Hematocrit 46.3 % (33.0-51.0); Hemoglobin 16.1 g/dL (11.5-16.0); IMMATURE GRAN ABSOLUTE AUTO 0.04 K/mm3 (0.00-0.10); IMMATURE GRAN PERCENT AUTO 0 % (0-1); LYMPHOCYTES ABSOLUTE AUTO 0.76 K/mm3 (0.84-5.20); LYMPHOCYTES PERCENT AUTO 6 % (21-46); MONOCYTES ABSOLUTE AUTO 0.51 K/mm3 (0.16-1.47); MONOCYTES PERCENT AUTO 4 % (4-13); Mean Corpuscular HGB 32.1 pg (26.0-34.0); Mean Corpuscular HGB Conc 34.8 g/dL (31.5-36.5); Mean Corpuscular Volume 92 fL (80-100); Mean Platelet Volume 8.8 fL (9.1-12.4); NEUTROPHILS ABSOLUTE AUTO 11.79 K/mm3 (1.96-9.15); NEUTROPHILS PERCENT AUTO 90 % (41-73); Platelet Count 292 K/mm3 (150-400); RDW Coefficient Variation 11.3 % (11.7-14.2); RDW Standard Deviation 38.5 fL (35.1-46.3); Red Blood Cell Count 5.01 M/mm3 (3.80-5.20); White Blood Cell Count 13.14 K/mm3 (4.00-11.30)
[2021-10-28 22:52] LABS: Albumin, Blood 3.8 g/dL (3.4-5.0); Albumin/Globulin Ratio 0.9 (0.8-1.8); Bilirubin, Total 0.9 mg/dL (0.1-1.0); Bun/Creatinine Ratio 34.8 (12.0-20.0); Calcium, Blood 10.3 mg/dL (8.5-10.1); Creatinine, Blood 0.52 mg/dL (0.40-1.00); Globulin, Blood 4.1 g/dL (2.2-4.0); Potassium, Blood 4.8 mmol/L (3.5-5.5); Total Protein, Blood 7.9 g/dL (6.4-8.2)
[2021-10-29 03:09] LABS: Source, Urine Clean Catch
[2021-10-29 03:11] LABS: Bilirubin, Urine Neg (Neg); Blood, Urine 3+ (Neg); Glucose Qualitative, Urine Neg (Neg); Ketones, Urine Neg (Neg); Leukocyte Esterase, Urine 1+ (Neg); Nitrite, Urine Neg (Neg); Protein, Urine 2+ (Neg); Urobilinogen, Urine NORM (Normal)
--- NOTE | 2021-10-29 03:17 | NUR ---
PT ARRIVED TO THE ROOM AT APPROX 0200. A/O X4 AND APPEARS TO BE DROWSY. VITALS TAKEN AND ADMISSION COMPLETED. WARM BLANKET GIVEN. IV FLUIDS STARTED. PT PLEASANT AND COOPERATIVE. WILL CONTINUE TO MONITOR.
[2021-10-29 03:34] LABS: Appearance, Urine Clear (Clear); Color, Urine Yellow (P-Yellow)
[2021-10-29 03:35] LABS: Bacteria Rare /hpf; Red Blood Cells, Urine 0-2 /hpf (0-2); Squamous Epithelial Cells Rare /hpf (Few); White Blood Cells, Urine 0-2 /hpf (0-5)
[2021-10-29 04:38] LABS: BASOPHILS ABSOLUTE AUTO 0.03 K/mm3 (0.00-0.23); BASOPHILS PERCENT AUTO 0 % (0-2); EOSINOPHILS PERCENT AUTO 0 % (0-6); IMMATURE GRAN ABSOLUTE AUTO 0.03 K/mm3 (0.00-0.10); IMMATURE GRAN PERCENT AUTO 0 % (0-1); LYMPHOCYTES ABSOLUTE AUTO 1.07 K/mm3 (0.84-5.20); LYMPHOCYTES PERCENT AUTO 11 % (21-46); MONOCYTES ABSOLUTE AUTO 1.11 K/mm3 (0.16-1.47); MONOCYTES PERCENT AUTO 11 % (4-13); Mean Corpuscular HGB 32.6 pg (26.0-34.0); Mean Corpuscular Volume 93 fL (80-100); Mean Platelet Volume 8.9 fL (9.1-12.4); NEUTROPHILS ABSOLUTE AUTO 7.95 K/mm3 (1.96-9.15); NEUTROPHILS PERCENT AUTO 78 % (41-73); Platelet Count 229 K/mm3 (150-400); RDW Coefficient Variation 11.3 % (11.7-14.2); RDW Standard Deviation 38.6 fL (35.1-46.3); White Blood Cell Count 10.19 K/mm3 (4.00-11.30)
[2021-10-29 04:57] LABS: Bun/Creatinine Ratio 36.1 (12.0-20.0); Calcium, Blood 8.7 mg/dL (8.5-10.1); Creatinine, Blood 0.5 mg/dL (0.40-1.00); Potassium, Blood 4.5 mmol/L (3.5-5.5)
--- NOTE | 2021-10-29 06:24 | NUR ---
A/O X4. SINCE ARRIVAL TO THE FLOOR PT HAS BEEN SBA TO BATHROOM AND SINCE ABOUT 0450 PT HAS HAD 3 BOUTS OF EMESIS TOTAL OF 170ML, ZOFRAN GIVEN. CALLED PHYSICIAN TO GET ORDER FOR ANOTHER ANTINAUSEA MEDICATION, SHE ORDERED REGLAN. ONCE AUTHORIZED I GAVE PT MEDICATION AND IT APPEARS TO HAVE HELPED. PT IND TO EMPTY OSTOMY BAG X1 THIS AM. CONTINUED NPO STATUS. HYDRALIZINE GIVEN FOR INCREASED BP. WILL CONTINUE TO MONITOR AND REPORT TO ONCOMING RN.
--- NOTE | 2021-10-29 18:11 | NUR ---
SHIFT SUMMARY PT WAS ADMITTED YESTERDAY FOR SBO. PT REPORTS NO N/V NO C/O PAIN. PT HAS ILEOSTOMY IN RLQ SINCE 2014 AND PERFORMS OWN OSTOMY CARE. PT IS A&O X4 AND IS INDPENDENT IN ROOM. PT ADVANCED TO CLEAR LIQUID DIET AND TOLERATED DINNER TRAY WELL. PT'S IS AT BEDSIDE. WILL CONTINUE TO MONITOR.
--- NOTE | 2021-10-30 08:22 | NUR ---
SUMMARY PT WITH NO NAUSEA TONIGHT.TOLERATING PO FLUIDS. VOIDING AND REPORTS IMPROVED OUTPUT PER OSTOMY.
[2021-10-30] MEDS ORDERED: AMOCLA875 PO (12:49)
[2021-10-30] MEDS ORDERED: OMEP20ER PO (12:50)
== END 2021-10-30 15:55 | disposition home or self-care (01) | DRG 386 ==
LOC: ER 21:55 → SURS 10-29 01:41 → MEDS 10-29 01:41 → SURS 10-29 02:00
PROVIDERS: Emergency Medicine; Student in an Organized Health Care Education/Training Program; ADMIT Family Medicine
DX: K50.012 Crohn's disease of small intestine with intestinal obstruction (principal); N13.1 Hydronephrosis with ureteral stricture, not elsewhere classified; E87.1 Hypo-osmolality and hyponatremia; K57.92 Diverticulitis of intestine, part unspecified, without perforation or abscess without bleeding; I10 Essential (primary) hypertension; E86.0 Dehydration; E83.52 Hypercalcemia; R11.2 Nausea with vomiting, unspecified; J47.9 Bronchiectasis, uncomplicated; D72.829 Elevated white blood cell count, unspecified; Z90.710 Acquired absence of both cervix and uterus; Z90.49 Acquired absence of other specified parts of digestive tract; Z85.038 Personal history of other malignant neoplasm of large intestine; Z88.8 Allergy status to other drugs, medicaments and biological substances; Z79.899 Other long term (current) drug therapy; Z93.2 Ileostomy status
CPT/HCPCS: 36415; 74177; 80048; 80053; 81001; 83690; 85025; 87086; 96374-59; 96375; 99285-25; C9113; J0360; J1650; J1885; J2405; J2543; J2550; J2765; J7030; Q9967

== ENCOUNTER 2021-11-11 06:47 | Emergency (ER) | payer MEDICARE, OTHER ==
[~2021-11-11] VITALS: Ht 149.9 cm; Wt 47.6 kg
[~2021-11-11 06:47] MED LIST changes: +AMOCLA875 PO; -VITAMIN D32000 UNIT PO; +VITAMIN D5000 UNIT PO
[2021-11-11 08:17] LABS: BASOPHILS ABSOLUTE AUTO 0.02 K/mm3 (0.00-0.23); BASOPHILS PERCENT AUTO 0 % (0-2); EOSINOPHILS PERCENT AUTO 0 % (0-6); Hematocrit 44.7 % (33.0-51.0); Hemoglobin 15.7 g/dL (11.5-16.0); IMMATURE GRAN ABSOLUTE AUTO 0.02 K/mm3 (0.00-0.10); IMMATURE GRAN PERCENT AUTO 0 % (0-1); LYMPHOCYTES ABSOLUTE AUTO 0.38 K/mm3 (0.84-5.20); LYMPHOCYTES PERCENT AUTO 4 % (21-46); MONOCYTES ABSOLUTE AUTO 0.46 K/mm3 (0.16-1.47); MONOCYTES PERCENT AUTO 4 % (4-13); Mean Corpuscular HGB 32.5 pg (26.0-34.0); Mean Corpuscular HGB Conc 35.1 g/dL (31.5-36.5); Mean Corpuscular Volume 93 fL (80-100); Mean Platelet Volume 8.8 fL (9.1-12.4); NEUTROPHILS ABSOLUTE AUTO 9.79 K/mm3 (1.96-9.15); NEUTROPHILS PERCENT AUTO 92 % (41-73); Platelet Count 239 K/mm3 (150-400); RDW Coefficient Variation 11.5 % (11.7-14.2); RDW Standard Deviation 39.2 fL (35.1-46.3); Red Blood Cell Count 4.83 M/mm3 (3.80-5.20); White Blood Cell Count 10.67 K/mm3 (4.00-11.30)
[2021-11-11 08:30] LABS: Albumin, Blood 3.6 g/dL (3.4-5.0); Albumin/Globulin Ratio 0.9 (0.8-1.8); Bilirubin, Total 1.4 mg/dL (0.1-1.0); Bun/Creatinine Ratio 31.8 (12.0-20.0); Creatinine, Blood 0.47 mg/dL (0.40-1.00); Potassium, Blood 4.2 mmol/L (3.5-5.5); Total Protein, Blood 7.6 g/dL (6.4-8.2)
[2021-11-11] MEDS ORDERED: PHENERGAN25 MG PR ×2 (10:47→12:17)
[2021-11-11] MEDS ORDERED: Norco 5-325 Ta1 EACH PO ×2 (10:47→12:17)
[2021-11-11] MEDS ORDERED: PREGABALIN50 MG PO (11:20)
[2021-11-11] MEDS ORDERED: Alph-E-Mixed400 UNIT PO (11:24)
[2021-11-11 12:39] LABS: Source, Urine Clean Catch
[2021-11-11 12:45] LABS: Appearance, Urine Clear (Clear); Bilirubin, Urine Neg (Neg); Blood, Urine 1+ (Neg); Color, Urine Yellow (P-Yellow); Glucose Qualitative, Urine Neg (Neg); Ketones, Urine 2+ (Neg); Leukocyte Esterase, Urine Neg (Neg); Nitrite, Urine Neg (Neg); Protein, Urine 1+ (Neg); Specific Gravity, Urine 1.015 (1.003-1.022); Urobilinogen, Urine NORM (Normal)
[2021-11-11 12:53] LABS: Red Blood Cells, Urine 0-2 /hpf (0-2); White Blood Cells, Urine 0-2 /hpf (0-5)
[2021-11-11 12:54] LABS: Squamous Epithelial Cells Rare /hpf (Few)
[2021-11-11 12:55] LABS: Bacteria Rare /hpf; Mucus Light (0-Heavy)
[2021-11-11 12:56] LABS: Hyaline Casts 0-2 /lpf (0-2)
== END 2021-11-11 13:17 | disposition home or self-care (01) ==
LOC: ER 06:47
PROVIDERS: Physician Assistant
DX: K52.9 Noninfective gastroenteritis and colitis, unspecified (principal); I10 Essential (primary) hypertension; Z79.899 Other long term (current) drug therapy; Z88.1 Allergy status to other antibiotic agents; Z88.8 Allergy status to other drugs, medicaments and biological substances; Z87.19 Personal history of other diseases of the digestive system
CPT/HCPCS: 74177; 80053; 81001; 83690; 83735; 85025; J1885; J2550; J7030; J7120; Q9967

== ENCOUNTER 2022-04-26 08:56 | Inpatient (IN) | payer MEDICARE, OTHER ==
[~2022-04-26] VITALS: Ht 149.9 cm; Wt 49.7 kg
[~2022-04-26 08:56] MED LIST changes: +Alph-E-Mixed400 UNIT PO; +Norco 5-325 Ta1 EACH PO; +PHENERGAN25 MG PR; +PREGABALIN50 MG PO; +VERA120; -VERA120ERB PO
[2022-04-26 10:44] LABS: Albumin, Blood 3.6 g/dL (3.4-5.0); Albumin/Globulin Ratio 0.8 (0.8-1.8); Bilirubin, Total 1.1 mg/dL (0.1-1.0); Bun/Creatinine Ratio 34.6 (12.0-20.0); Creatinine, Blood 0.43 mg/dL (0.40-1.00); Globulin, Blood 4.5 g/dL (2.2-4.0); Total Protein, Blood 8.1 g/dL (6.4-8.2)
[2022-04-26 12:32] LABS: BASOPHILS ABSOLUTE AUTO 0.01 K/mm3 (0.00-0.23); BASOPHILS PERCENT AUTO 0 % (0-2); EOSINOPHILS ABSOLUTE AUTO 0.02 K/mm3 (0.00-0.68); EOSINOPHILS PERCENT AUTO 0 % (0-6); Hematocrit 45.6 % (33.0-51.0); IMMATURE GRAN ABSOLUTE AUTO 0.03 K/mm3 (0.00-0.10); IMMATURE GRAN PERCENT AUTO 0 % (0-1); LYMPHOCYTES ABSOLUTE AUTO 0.62 K/mm3 (0.84-5.20); LYMPHOCYTES PERCENT AUTO 6 % (21-46); MONOCYTES PERCENT AUTO 6 % (4-13); Mean Corpuscular HGB 32.9 pg (26.0-34.0); Mean Corpuscular HGB Conc 35.1 g/dL (31.5-36.5); Mean Corpuscular Volume 94 fL (80-100); Mean Platelet Volume 8.8 fL (9.1-12.4); NEUTROPHILS ABSOLUTE AUTO 9.12 K/mm3 (1.96-9.15); NEUTROPHILS PERCENT AUTO 88 % (41-73); Platelet Count 256 K/mm3 (150-400); RDW Coefficient Variation 12.1 % (11.7-14.2); RDW Standard Deviation 42.5 fL (35.1-46.3); Red Blood Cell Count 4.86 M/mm3 (3.80-5.20)
[2022-04-26 13:55] LABS: Triglycerides 472 mg/dL (30-160)
[2022-04-26 14:09] LABS: Source, Urine Voided
[2022-04-26 14:13] LABS: Appearance, Urine Clear (Clear); Bilirubin, Urine Neg (Neg); Blood, Urine 3+ (Neg); Color, Urine Yellow (P-Yellow); Glucose Qualitative, Urine Neg (Neg); Ketones, Urine 1+ (Neg); Leukocyte Esterase, Urine 1+ (Neg); Nitrite, Urine Neg (Neg); Protein, Urine 2+ (Neg); Urobilinogen, Urine NORM (Normal); pH, Urine 6.5 (5.0-8.0)
[2022-04-26 14:23] LABS: Bacteria Few /hpf; Squamous Epithelial Cells Few /hpf (Few)
[2022-04-26 14:24] LABS: Renal Epithelial Few /hpf (0-Rare)
--- NOTE | 2022-04-26 15:42 | NUR ---
ADMIT PATIENT ADMITTED FROM ER AT 1430. PATIENT SETTLED INTO ROOM. PATIENT ORIENTED TO CALL LIGHT AND TV CONTROL. PATIENT IS SBA TO THE [facility] [place]. PATIENT MANAGES OWN ILEOSTOMY. PATIENT IS A&O X4. ADMISSION COMPLETE. PATIENT IS NPO. GEN SURG CONSULT CALLED TO DR. SALES. LR STARTED AT 75MLS. PATIENT MEDICATED FOR NAUSEA X1. PATIENT PLEASANT AND COOPERATIVE WITH CARE.
--- NOTE | 2022-04-26 18:16 | NUR ---
SHIFT SUMMARY: PATIENT IS ALERT AND ORIENTED x4. SHE IS COOOPERATIVE WITH CARE AND IS ABLE TO MAKE HER NEEDS KNOWN. SHE HAS BEEN RESTING COMFORTABLY IN BED SINCE ARRIVING TO THE FLOOR AND STATES SHE IS "EXHAUSTED AND WANTS TO SLEEP." LR IS RUNNING AT 75 MLS/HR. HAS DENIED PAIN AND NAUSEA WHEN ASKED. SHE HAS EMPTIED HER ILIOSTOMY ONCE DURING THE SHIFT AND WAS A STAND BY ASSIST WITH THIS TASK. CALL LIGHT IN REACH. BED IN LOWEST POSITION. WILL CONTINUE TO MONITOR.
--- NOTE | 2022-04-27 04:25 | NUR ---
SHIFT SUMMARY NO ACUTE CHANGES. PT WAS VERY TIRED FROM THIS AFTERNOON AND REQUESTE TO BE DISURBED LITTLE POSSIBLE. SHE IS INDEPENDENT IN THE ROOM AND HAS BEEN SLEEPING ALL NIGHT. BED IN LOWEST POSITION AND CALL LIGHT IN REACH.
[2022-04-27 04:44] LABS: BASOPHILS ABSOLUTE AUTO 0.02 K/mm3 (0.00-0.23); BASOPHILS PERCENT AUTO 0 % (0-2); EOSINOPHILS ABSOLUTE AUTO 0.09 K/mm3 (0.00-0.68); EOSINOPHILS PERCENT AUTO 1 % (0-6); Hematocrit 40.1 % (33.0-51.0); Hemoglobin 13.5 g/dL (11.5-16.0); IMMATURE GRAN ABSOLUTE AUTO 0.01 K/mm3 (0.00-0.10); IMMATURE GRAN PERCENT AUTO 0 % (0-1); LYMPHOCYTES PERCENT AUTO 16 % (21-46); MONOCYTES ABSOLUTE AUTO 0.87 K/mm3 (0.16-1.47); MONOCYTES PERCENT AUTO 12 % (4-13); Mean Corpuscular HGB 31.9 pg (26.0-34.0); Mean Corpuscular HGB Conc 33.7 g/dL (31.5-36.5); Mean Corpuscular Volume 95 fL (80-100); Mean Platelet Volume 8.9 fL (9.1-12.4); NEUTROPHILS ABSOLUTE AUTO 5.11 K/mm3 (1.96-9.15); NEUTROPHILS PERCENT AUTO 70 % (41-73); Platelet Count 242 K/mm3 (150-400); RDW Coefficient Variation 12.4 % (11.7-14.2); RDW Standard Deviation 43.2 fL (35.1-46.3); Red Blood Cell Count 4.23 M/mm3 (3.80-5.20)
[2022-04-27 05:03] LABS: Albumin, Blood 3.1 g/dL (3.4-5.0); Albumin/Globulin Ratio 0.9 (0.8-1.8); Bilirubin, Total 1.3 mg/dL (0.1-1.0); Bun/Creatinine Ratio 31.7 (12.0-20.0); Calcium, Blood 8.9 mg/dL (8.5-10.1); Creatinine, Blood 0.54 mg/dL (0.40-1.00); Globulin, Blood 3.6 g/dL (2.2-4.0); Potassium, Blood 3.8 mmol/L (3.5-5.5); Total Protein, Blood 6.7 g/dL (6.4-8.2)
--- NOTE | 2022-04-27 18:40 | NUR ---
PATIENT HAD SMALL BOWEL STUDY THIS SHIFT. APPEARED CLEAR. PATIENT DIET ADVANCED TOLERATED, AFTER EATING REGULAR DIET WAS ABLE TO DISCHARGE. IV WAS REMOVED. TRANSPORTED PATIENT TO HOME AFTER DISCHARGE INSTRUCTIONS WERE PROVIDED TO THE PATIENT. ALL BELONINGS RETURNED AND PATIENT ESCORTED OUT OF THE FACILTIY.
== END 2022-04-27 18:46 | disposition home or self-care (01) | DRG 388 ==
LOC: ER 08:56 → MEDS 13:08
PROVIDERS: Emergency Medicine; ADMIT Internal Medicine
DX: K56.600 Partial intestinal obstruction, unspecified as to cause (principal); K85.90 Acute pancreatitis without necrosis or infection, unspecified; N13.30 Unspecified hydronephrosis; E78.00 Pure hypercholesterolemia, unspecified; I10 Essential (primary) hypertension; K52.9 Noninfective gastroenteritis and colitis, unspecified; M19.90 Unspecified osteoarthritis, unspecified site; C54.1 Malignant neoplasm of endometrium; J47.9 Bronchiectasis, uncomplicated; Z88.1 Allergy status to other antibiotic agents; Z88.8 Allergy status to other drugs, medicaments and biological substances; Z15.09 Genetic susceptibility to other malignant neoplasm; Z79.899 Other long term (current) drug therapy; Z79.891 Long term (current) use of opiate analgesic; Z85.038 Personal history of other malignant neoplasm of large intestine; Z90.49 Acquired absence of other specified parts of digestive tract; Z90.710 Acquired absence of both cervix and uterus; Z87.19 Personal history of other diseases of the digestive system; Z93.2 Ileostomy status
CPT/HCPCS: 36415; 74177; 74250; 80053; 81001; 83690; 84478; 85025; 87086; 93005; 93010; J1644; J1885; J2405; J2550; J7120; Q9967

== ENCOUNTER 2022-07-11 01:35 | Observation (INO) | payer MEDICARE, OTHER ==
[~2022-07-11] VITALS: Ht 149.9 cm; Wt 52.7 kg
[2022-07-11] MEDS ORDERED: ZINC15 PO (02:51)
[2022-07-11 06:02] LABS: BASOPHILS ABSOLUTE AUTO 0.01 K/mm3 (0.00-0.23); BASOPHILS PERCENT AUTO 0 % (0-2); EOSINOPHILS ABSOLUTE AUTO 0.02 K/mm3 (0.00-0.68); EOSINOPHILS PERCENT AUTO 0 % (0-6); Hematocrit 41.9 % (33.0-51.0); Hemoglobin 14.9 g/dL (11.5-16.0); IMMATURE GRAN ABSOLUTE AUTO 0.02 K/mm3 (0.00-0.10); IMMATURE GRAN PERCENT AUTO 0 % (0-1); LYMPHOCYTES ABSOLUTE AUTO 1.02 K/mm3 (0.84-5.20); LYMPHOCYTES PERCENT AUTO 11 % (21-46); MONOCYTES ABSOLUTE AUTO 0.52 K/mm3 (0.16-1.47); MONOCYTES PERCENT AUTO 6 % (4-13); Mean Corpuscular HGB 32.7 pg (26.0-34.0); Mean Corpuscular HGB Conc 35.6 g/dL (31.5-36.5); Mean Corpuscular Volume 92 fL (80-100); Mean Platelet Volume 8.7 fL (9.1-12.4); NEUTROPHILS ABSOLUTE AUTO 7.78 K/mm3 (1.96-9.15); NEUTROPHILS PERCENT AUTO 83 % (41-73); Platelet Count 261 K/mm3 (150-400); RDW Coefficient Variation 11.9 % (11.7-14.2); RDW Standard Deviation 39.9 fL (35.1-46.3); Red Blood Cell Count 4.56 M/mm3 (3.80-5.20); White Blood Cell Count 9.37 K/mm3 (4.00-11.30)
[2022-07-11 06:21] LABS: Albumin, Blood 3.4 g/dL (3.4-5.0); Albumin/Globulin Ratio 0.8 (0.8-1.8); Bilirubin, Total 1.2 mg/dL (0.1-1.0); Bun/Creatinine Ratio 23.9 (12.0-20.0); Calcium, Blood 9.2 mg/dL (8.5-10.1); Creatinine, Blood 0.5 mg/dL (0.40-1.00); Globulin, Blood 4.1 g/dL (2.2-4.0); Magnesium, Blood 2.4 mg/dL (1.6-2.4); Potassium, Blood 4.1 mmol/L (3.5-5.5); Total Protein, Blood 7.5 g/dL (6.4-8.2)
--- NOTE | 2022-07-11 17:22 | NUR ---
PT ADMITTED FROM ED TO ROOM 303 AT 0920, STRETCHER TO BED, PT STOOD AND AMBULATED TO BED. ORIENTED TO ROOM AND [facility]. C/O NAUSEA. PLACED A CALL TO JEAN FONG FOR PHENERGAN.
--- NOTE | 2022-07-11 17:23 | NUR ---
SUMMARY- PT A/O X4, USES CALL LIGHT. SBA TO BATHROOM JUST WHILE PHENERGAN IN EFFECT RELATED TO SLIGHT DIZZINESS. NAUSEA RESLOLVED AFTER PHENERGAN. PT NAPPED MOST OF AFTERNOON ON NPO STATUS. PT'S ILLIOSTOMY FILLED TWICE AND PT EMPTIED LIQ SCHULZ INTO TOILET. STATES OUTPUT IS BACK TO NORMAL AND FEELS SBO IS RESOLVING. DR ANGELES AT BEDSIDE 1710 TO EVAL PT. STARTED PT ON CLEARS.
--- NOTE | 2022-07-12 04:21 | NUR ---
SHIFT SUMMARY; NO ACUTE CHANGES OVERNIGHT. THE PT RESTED IN BED FOR THE ENTIRETY OF THE NIGHT. THE PT IS AXO X4 AND INDEPENDENT IN THE ROOM. THE PT HAS A ILEOSTOMY FOR WHICH SHE IS INDEPENDENT OF CARE FOR. THE PT DENIES ANY PAIN, SOB, CHEST PAIN/PRESSURE THIS SHIFT. PT DENIES ANY NAUSEA THIS SHIFT. CURRENTLY THE PT IS RESTING IN BED WITH THE BED IN THE LOWEST POSITION AND THE CALL LIGHT AT BEDSIDE.
[2022-07-12 04:52] LABS: BASOPHILS ABSOLUTE AUTO 0.03 K/mm3 (0.00-0.23); BASOPHILS PERCENT AUTO 1 % (0-2); EOSINOPHILS ABSOLUTE AUTO 0.12 K/mm3 (0.00-0.68); EOSINOPHILS PERCENT AUTO 2 % (0-6); Hematocrit 36.3 % (33.0-51.0); Hemoglobin 12.3 g/dL (11.5-16.0); IMMATURE GRAN ABSOLUTE AUTO 0.02 K/mm3 (0.00-0.10); IMMATURE GRAN PERCENT AUTO 0 % (0-1); LYMPHOCYTES ABSOLUTE AUTO 1.61 K/mm3 (0.84-5.20); LYMPHOCYTES PERCENT AUTO 25 % (21-46); MONOCYTES ABSOLUTE AUTO 0.74 K/mm3 (0.16-1.47); MONOCYTES PERCENT AUTO 12 % (4-13); Mean Corpuscular HGB 32.3 pg (26.0-34.0); Mean Corpuscular HGB Conc 33.9 g/dL (31.5-36.5); Mean Corpuscular Volume 95 fL (80-100); Mean Platelet Volume 9.1 fL (9.1-12.4); NEUTROPHILS ABSOLUTE AUTO 3.83 K/mm3 (1.96-9.15); NEUTROPHILS PERCENT AUTO 60 % (41-73); Platelet Count 211 K/mm3 (150-400); RDW Coefficient Variation 12.2 % (11.7-14.2); RDW Standard Deviation 42.3 fL (35.1-46.3); Red Blood Cell Count 3.81 M/mm3 (3.80-5.20); White Blood Cell Count 6.35 K/mm3 (4.00-11.30)
[2022-07-12 05:16] LABS: Magnesium, Blood 2.2 mg/dL (1.6-2.4)
[2022-07-12 05:17] LABS: Albumin, Blood 2.6 g/dL (3.4-5.0); Albumin/Globulin Ratio 0.8 (0.8-1.8); Bilirubin, Total 1.1 mg/dL (0.1-1.0); Creatinine, Blood 0.55 mg/dL (0.40-1.00); Globulin, Blood 3.2 g/dL (2.2-4.0); Potassium, Blood 3.6 mmol/L (3.5-5.5); Total Protein, Blood 5.8 g/dL (6.4-8.2)
--- NOTE | 2022-07-12 13:42 | NUR ---
DISCHARGE SUMMARY PT DISCHARGED TO HOME. PT LEFT ROOM VIA WHEELCHAIR WITH THIS RN ESCORT TO CAR. PT LEFT ROOM AT 1331. IV DC'D AND BELONGINGS RETURNED. ALL DISCHARGE INSTRUCTIONS DISCUSSED, ALL QUESTIONS ANSWERED. PT AGREES TO FOLLOW UP SCHEDULED WITH DR. KONG.
== END 2022-07-12 13:31 | disposition home or self-care (01) ==
LOC: ER 01:35 → MEDS 01:36
PROVIDERS: Emergency Medicine; ADMIT Internal Medicine
DX: K56.600 Partial intestinal obstruction, unspecified as to cause (principal); E87.1 Hypo-osmolality and hyponatremia; N13.30 Unspecified hydronephrosis; I10 Essential (primary) hypertension; E78.5 Hyperlipidemia, unspecified; D18.09 Hemangioma of other sites; M19.90 Unspecified osteoarthritis, unspecified site; M85.80 Other specified disorders of bone density and structure, unspecified site; Z93.2 Ileostomy status; Z98.890 Other specified postprocedural states; Z85.038 Personal history of other malignant neoplasm of large intestine; Z15.09 Genetic susceptibility to other malignant neoplasm; Z88.1 Allergy status to other antibiotic agents; Z79.899 Other long term (current) drug therapy
CPT/HCPCS: 36415; 74176; 80053; 83605; 83690; 83735; 85025; 96361; 96372; 96374; 96375; 96376; 99285-25; A9270; G0378; J1170; J1650; J2550; J7030

== ENCOUNTER 2023-05-11 18:20 | Inpatient (IN) | payer MEDICARE, OTHER ==
[~2023-05-11] VITALS: Ht 149.9 cm; Wt 51.1 kg
[~2023-05-11 18:20] MED LIST changes: +ZINC15 PO
[2023-05-11 18:46] LABS: BASOPHILS ABSOLUTE AUTO 0.04 K/mm3 (0.00-0.23); BASOPHILS PERCENT AUTO 0 % (0-2); EOSINOPHILS ABSOLUTE AUTO 0.01 K/mm3 (0.00-0.68); EOSINOPHILS PERCENT AUTO 0 % (0-6); Hematocrit 45.5 % (33.0-51.0); Hemoglobin 16.1 g/dL (11.5-16.0); IMMATURE GRAN ABSOLUTE AUTO 0.03 K/mm3 (0.00-0.10); IMMATURE GRAN PERCENT AUTO 0 % (0-1); LYMPHOCYTES ABSOLUTE AUTO 0.84 K/mm3 (0.84-5.20); LYMPHOCYTES PERCENT AUTO 6 % (21-46); MONOCYTES PERCENT AUTO 4 % (4-13); Mean Corpuscular HGB 32.3 pg (26.0-34.0); Mean Corpuscular HGB Conc 35.4 g/dL (31.5-36.5); Mean Corpuscular Volume 91 fL (80-100); Mean Platelet Volume 9.1 fL (9.1-12.4); NEUTROPHILS ABSOLUTE AUTO 11.84 K/mm3 (1.96-9.15); NEUTROPHILS PERCENT AUTO 89 % (41-73); Platelet Count 227 K/mm3 (150-400); RDW Coefficient Variation 11.6 % (11.7-14.2); Red Blood Cell Count 4.98 M/mm3 (3.80-5.20); White Blood Cell Count 13.26 K/mm3 (4.00-11.30)
[2023-05-11 19:15] LABS: Albumin, Blood 3.8 g/dL (3.4-5.0); Albumin/Globulin Ratio 0.9 (0.8-1.8); Bun/Creatinine Ratio 15.3 (12.0-20.0); Calcium, Blood 9.9 mg/dL (8.5-10.1); Creatinine, Blood 0.59 mg/dL (0.40-1.00); Globulin, Blood 4.2 g/dL (2.2-4.0)
[2023-05-11] MEDS ORDERED: FOSAMAX70 MG PO (21:39)
[2023-05-11] MEDS ORDERED: VERAPAMIL ER120 M1 PO (21:40)
[2023-05-11] MEDS ORDERED: Amitriptyline H10 MG PO (21:40)
[2023-05-11] MEDS ORDERED: LOSARTAN POTASS25 M2 PO (21:40)
[2023-05-12 03:26] VITALS: BP 170/91
[2023-05-12 05:44] LABS: BASOPHILS ABSOLUTE AUTO 0.04 K/mm3 (0.00-0.23); BASOPHILS PERCENT AUTO 0 % (0-2); EOSINOPHILS PERCENT AUTO 0 % (0-6); Hematocrit 46.6 % (33.0-51.0); Hemoglobin 16.1 g/dL (11.5-16.0); IMMATURE GRAN ABSOLUTE AUTO 0.11 K/mm3 (0.00-0.10); IMMATURE GRAN PERCENT AUTO 1 % (0-1); LYMPHOCYTES ABSOLUTE AUTO 0.53 K/mm3 (0.84-5.20); LYMPHOCYTES PERCENT AUTO 3 % (21-46); MONOCYTES ABSOLUTE AUTO 0.81 K/mm3 (0.16-1.47); MONOCYTES PERCENT AUTO 5 % (4-13); Mean Corpuscular HGB 32.5 pg (26.0-34.0); Mean Corpuscular HGB Conc 34.5 g/dL (31.5-36.5); Mean Corpuscular Volume 94 fL (80-100); Mean Platelet Volume 9.8 fL (9.1-12.4); NEUTROPHILS ABSOLUTE AUTO 14.07 K/mm3 (1.96-9.15); NEUTROPHILS PERCENT AUTO 90 % (41-73); Platelet Count 177 K/mm3 (150-400); RDW Coefficient Variation 12.1 % (11.7-14.2); RDW Standard Deviation 41.4 fL (35.1-46.3); Red Blood Cell Count 4.96 M/mm3 (3.80-5.20); White Blood Cell Count 15.56 K/mm3 (4.00-11.30)
--- NOTE | 2023-05-12 06:31 | NUR ---
Rn shift summary: Patient was received at 0330 to room 355 via stretcher from the ED. Pt settled in and oriented to room and call light in reach. Purwik placed due to weakness and nausia if up. Patient has illeostomy to rt lower abdomen. Adb. is sl distended, tender to light touch. Pt is alert and oriented but sleepy. Pt had one small bile emisis after all the moving in bed. She has rested well between cares. IV fluids as ordered. NPO status. Patient has had no c/o pain. Call light in reach. Will continue to monitor.
[2023-05-12 07:06] LABS: Albumin, Blood 3.5 g/dL (3.4-5.0); Albumin/Globulin Ratio 0.8 (0.8-1.8); Bilirubin, Total 1.5 mg/dL (0.1-1.0); Bun/Creatinine Ratio 16.8 (12.0-20.0); Creatinine, Blood 0.59 mg/dL (0.40-1.00); Globulin, Blood 4.2 g/dL (2.2-4.0); Magnesium, Blood 2.1 mg/dL (1.6-2.4); Potassium, Blood 4.9 mmol/L (3.5-5.5); Total Protein, Blood 7.7 g/dL (6.4-8.2)
[2023-05-12 08:57] VITALS: BP 163/79
[2023-05-12 17:23] VITALS: BP 180/88
--- NOTE | 2023-05-12 18:14 | NUR ---
SHIFT SUMMARY: PT A&O X4. PLEASANT AND COOPERATIVE WITH CARE. CONSULT PLACED TO DR. FREITAS PRIOR TO DAY SHIFT. CONSULT THIS AM STATING TO PLACE NG TUBE. PT C/O 8 PAIN IN ABD THIS SHIFT. PLACED CALL TO HOSPITALIST AND RECEIVED ORDER FOR IV PAIN MEDICATION. MORPHINE PROVIDED PER EMAR. NG TUBE PLACED THIS EVENING IN R. NOSTRIL W/ 1V ABD X-RAY FOLLOWING. TOLERATED WELL. SUCTION PLACED TO INTERMITTENT LOW SUCTIONING DRAINING GREEN/YELLOW LIQUID. NEW IV ATTEMPTED TWICE BY THIS RN. WILL ALERT BALLOON ARTIST THAT PT WILL NEED NEW IV FOR FLUID REPLACEMENT. ILIOSTOMY IN RLQ NOT PRODUCING ANY STOOL. CALL LIGHT IN REACH. BED IN LOWEST POSITION.
[2023-05-12 19:30] VITALS: BP 192/87
[2023-05-12 22:49] VITALS: BP 150/67
[2023-05-13 04:44] VITALS: BP 171/87
[2023-05-13 05:52] LABS: Hemoglobin 14.5 g/dL (11.5-16.0); Mean Corpuscular HGB 32.3 pg (26.0-34.0); Mean Corpuscular HGB Conc 34.5 g/dL (31.5-36.5); Mean Corpuscular Volume 94 fL (80-100); Mean Platelet Volume 9.3 fL (9.1-12.4); Platelet Count 245 K/mm3 (150-400); RDW Coefficient Variation 12.7 % (11.7-14.2); RDW Standard Deviation 43.2 fL (35.1-46.3); Red Blood Cell Count 4.49 M/mm3 (3.80-5.20)
[2023-05-13 05:53] LABS: BASOPHILS ABSOLUTE AUTO 0.08 K/mm3 (0.00-0.23); BASOPHILS PERCENT AUTO 1 % (0-2); EOSINOPHILS PERCENT AUTO 0 % (0-6); IMMATURE GRAN ABSOLUTE AUTO 0.11 K/mm3 (0.00-0.10); IMMATURE GRAN PERCENT AUTO 1 % (0-1); LYMPHOCYTES ABSOLUTE AUTO 0.55 K/mm3 (0.84-5.20); LYMPHOCYTES PERCENT AUTO 5 % (21-46); MONOCYTES PERCENT AUTO 9 % (4-13); NEUTROPHILS ABSOLUTE AUTO 9.72 K/mm3 (1.96-9.15); NEUTROPHILS PERCENT AUTO 85 % (41-73); White Blood Cell Count 11.46 K/mm3 (4.00-11.30)
[2023-05-13 06:12] LABS: Bun/Creatinine Ratio 22.4 (12.0-20.0); Calcium, Blood 9.5 mg/dL (8.5-10.1); Creatinine, Blood 1.16 mg/dL (0.40-1.00); Potassium, Blood 4.1 mmol/L (3.5-5.5)
--- NOTE | 2023-05-13 06:35 | NUR ---
SHIFT SUMMARY: PT IS ADMITTED FOR SMALL BOWEL OBSTRUCTION AND IS A FULL CODE. SHE IS ALERT AND ABLE TO MAKE NEEDS KNOWN. ADLs ARE 1P MIN FOR MOST ACTIVITIES. WAS UP TO THE BEDSIDE COMMODE. ILEOSTOMY TO THE RIGHT LOWER ABD NOTED. UNABLE TO ACCESS STOMA DUE TO APPLIANCE IN PLACE. CURRENTLY THERE HAS NOT BEEN ANY OUTPUT FROM THE ILEOSTOMY THIS SHIFT. N/V HAS BEEN ONGOING THROUGH SHIFT HAVE GIVEN PRN ZOFRAN AND COMPAZINE THAT HAS BEEN SOMEWHAT EFFECTIVE. AT START OF SHIFT IV NEEDED TO BE PLACE AND WAS PLACED JUST ABOVE LEFT WRIST AND HAS BEEN RUNNING LR AT 75 WITH OUT ISSUES. PAIN HAS BEEN MANAGED BY PRN PAIN MANAGEMENT X1. X-RAY WAS REQUESTED AND ORDERED NEAR START OF SHIFT FOR NG TUBE TO DOUBLE CHECK PLACEMENT DUE TO SUSPECTED MOVEMENT OF TUBE. DURING ASSESSMENT WAS NOTED THAT RIGHT LEG WAS LARGER THAN LEFT LEG WITH SPOTS BEING WARMER THAN LEFT (IE THE TOP OF THE LEG BEING WARMER BUT NOT THE SIDES). BUT NO COLOR DIFFERENCE. PT REPORTED SPASM LIKE PAIN IN THE RIGHT HIP AND HAMSTRING EARLY IN THE SHIFT AND THIS WOULD COME AND GO THROUGH THE SHIFT. THIS WAS REPORTED TO DR GUY WHO STATED JUST WATCH IT AND SEE IF ANYTHING CHANGES. REVIEWED X-RAY FOR NG TUBE PLACEMENT GAVE ORDERS WITHDRAW 2-3CM AND RETAKE X-RAY. DR. TURNER DID CALL TOWARDS THE END OF SHIFT AND STATED THAT THE PLACEMENT OF THE NG TUBE WAS IN THE PROPER PLACE AND ABLE TO BE USED.
[2023-05-13 07:43] VITALS: BP 189/94
[2023-05-13 14:59] VITALS: BP 140/69
[2023-05-13] MEDS ORDERED: VITAMIN D5000 UNIT PO (15:47)
[2023-05-13] MEDS ORDERED: TOCO1000 PO (15:48)
[2023-05-13] MEDS ORDERED: MULVITA PO (15:49)
[2023-05-13] MEDS ORDERED: FISH OIL 1,2001 EAC7 PO (15:50)
--- NOTE | 2023-05-13 19:43 | NUR ---
SHIFT SUMMARY: PT A&O X4. PLEASANT AND COOPERATIVE WITH CARE. SERIAL ABDOMINAL IMAGES COMPLETED THIS SHIFT. PT C/O NAUSEA THIS AM. COMPAZINE GIVEN W/ NO IMPROVEMENT. PT ARRIVED BACK TO ROOM AFTER FIRST IMAGE HAVING TO THROW UP. PT PROJECTILE VOMITED 2L. EMPTIED 1L FROM NG THIS SHIFT WITH ANOTHER 400ML IN CANISTER. LR INFUSING @75/HR. PT RESTING COMFORTABLY AT TIME OF REPORT. CALL LIGHT IN REACH. BED IN LOWEST POSITION. REPORT GIVEN TO ONCOMING NURSE.
[2023-05-13 20:18] VITALS: BP 159/80
[2023-05-14 01:57] VITALS: BP 176/87
--- NOTE | 2023-05-14 06:16 | NUR ---
SHIFT SUMMARY: PT IS ADMITTED FOR SMALL BOWEL OBSTRUCTION AND IS A FULL CODE. SHE IS ALERT AND ABLE TO MAKE NEEDS KNOWN. SHE WAS NOTED TO HAVE A ROUND OF CONFUSION BUT WAS ABLE TO BE REORIENTED. SHE IS 1P MIN-MOD DEPENDING ON ACTIVITY BUT REMAINED IN BED THROUGHOUT SHIFT. DENIES PAIN OR DISCOMFORT WHEN ASKED. IV TO LEFT FOREARM IS PATENT WITH A DRESSING THAT IS CDI. LR RUNNING AT 75ML/H. NG IN PLACE WITH INTERMITTENT SUCTION AND DRAINING DARK BROWN/ BLACK FLUID IN MODERATE AMOUNTS. ILEOSTOMY TO RIGHT LOWER ABD UNABLE TO BE ACCESSED DUE TO APPLIANCE IN PLACE. WAS NOTED TO HAVE SOME DISCHARGE THIS SHIFT. THE DISCHARGE FROM THE ILEOSTOMY IS THE SAME COLOR BEING TAKING FROM THE NG TUBE. THERE IS ALSO SMALL DONY LIKE CHUNKS IN THE DISCHARGE. EMESIS X1 AND WAS GIVEN PRN ZOFRAN X1.
[2023-05-14 08:06] VITALS: BP 187/99
--- NOTE | 2023-05-14 11:25 | NUR ---
DR SALCIDO ROUNDED, CONTIUE NG TUBE LIS, DR GONZALEZ ROUNDED, POSSIBLE INCREASE FROM NPO TO CLEAR LIQUIDS, PATIENT PLEASANT AND COOPERATIVE TO CARE. NO DISTRESS, RESPS EVEN AND NONLABORED, VISITED, CALL LIGHT WITH IN REACH
[2023-05-14 16:31] VITALS: BP 151/77
--- NOTE | 2023-05-14 17:27 | NUR ---
NO ACUTE CHANGES, ALERT AND ORIENTED TO ALL, NG TO LIS NICK, ILEOSTOMY BROWN DRAINAGE, PATIENT MAKES NEEDS KNOWN, NO COMPLAINTS OF NV TODAY, VISITED THROUGH OUT THE DAY, DR SALCIDO ROUNDED, PLAN TO WAIT AND SEE IF NG IMPROVES FLATULACE OR BM, CALL LIGHT WITH IN REACH
[2023-05-14 19:31] VITALS: BP 161/78
[2023-05-15 04:21] VITALS: BP 175/93
--- NOTE | 2023-05-15 05:50 | NUR ---
SHIFT SUMMARY 72 YR F ADMITTED ON 05/12/23 FOR SMALL BOWEL OBSTRUCTION. FULL CODE. NO ACUTE CHANGES THIS SHIFT. NG TUBE IS WORKING WELL ON LOW/INTERMITTANT SUCTION. ILIOSTOMY PRODUCING BROWN STOOL.PT APPEARS TO HAVE SLEPT WELL THROUGHOUT THE NIGHT. NO C/O PAIN OR DISCOMFOR AND NO N/V. CBG HAS BEEN IN THE LOW 100'S.
[2023-05-15 07:34] VITALS: BP 177/93
[2023-05-15 13:31] LABS: BASOPHILS ABSOLUTE AUTO 0.01 K/mm3 (0.00-0.23); BASOPHILS PERCENT AUTO 0 % (0-2); EOSINOPHILS PERCENT AUTO 0 % (0-6); Hematocrit 46.3 % (33.0-51.0); Hemoglobin 15.4 g/dL (11.5-16.0); IMMATURE GRAN ABSOLUTE AUTO 0.12 K/mm3 (0.00-0.10); IMMATURE GRAN PERCENT AUTO 1 % (0-1); LYMPHOCYTES ABSOLUTE AUTO 0.78 K/mm3 (0.84-5.20); LYMPHOCYTES PERCENT AUTO 5 % (21-46); MONOCYTES ABSOLUTE AUTO 1.36 K/mm3 (0.16-1.47); MONOCYTES PERCENT AUTO 9 % (4-13); Mean Corpuscular HGB 32.2 pg (26.0-34.0); Mean Corpuscular HGB Conc 33.3 g/dL (31.5-36.5); Mean Corpuscular Volume 97 fL (80-100); Mean Platelet Volume 9.9 fL (9.1-12.4); NEUTROPHILS ABSOLUTE AUTO 12.72 K/mm3 (1.96-9.15); NEUTROPHILS PERCENT AUTO 85 % (41-73); Platelet Count 233 K/mm3 (150-400); RDW Coefficient Variation 13.1 % (11.7-14.2); Red Blood Cell Count 4.79 M/mm3 (3.80-5.20); White Blood Cell Count 14.99 K/mm3 (4.00-11.30)
[2023-05-15 13:47] LABS: Albumin, Blood 3.2 g/dL (3.4-5.0); Albumin/Globulin Ratio 0.7 (0.8-1.8); Bun/Creatinine Ratio 16.2 (12.0-20.0); Calcium, Blood 10.2 mg/dL (8.5-10.1); Creatinine, Blood 4.56 mg/dL (0.40-1.00); Globulin, Blood 4.8 g/dL (2.2-4.0)
[2023-05-15 16:25] VITALS: BP 126/105
[2023-05-15 16:42] LABS: Source, Urine Foley catheter
[2023-05-15 16:50] LABS: Appearance, Urine Clear (Clear); Bilirubin, Urine Neg (Neg); Blood, Urine 5+ (Neg); Color, Urine Yellow (P-Yellow); Glucose Qualitative, Urine Neg (Neg); Ketones, Urine Neg (Neg); Leukocyte Esterase, Urine 1+ (Neg); Nitrite, Urine Neg (Neg); Protein, Urine 1+ (Neg); Specific Gravity, Urine 1.015 (1.003-1.022); Urobilinogen, Urine NORM (Normal)
[2023-05-15 17:07] LABS: Bacteria Few /hpf; Red Blood Cells, Urine 25-50 /hpf (0-2); Squamous Epithelial Cells Not Seen /hpf (Few)
--- NOTE | 2023-05-15 18:20 | NUR ---
NO ACUTE CHANGES, ABD SERIES, ILEOSTOMY OUTPUT INCREASED, PASS GAS, PARTIDA PLACED, CLEAR YELLOW URINE, UA SENT. NG TUBE REMOVED PER DR FREITAS, DR MACIAS CONSULTED AND HAS ROUNDED ON PATIENT. LS DIMISHED, NO SOB, MEDICATED WITH TYLENOL X1 FOR PAIN, ALERT AND ORIENTED, MAKES NEEDS KNOWN, CALL LIGHT WITH IN REACH, WILL RELAY TO PM RN
[2023-05-15 20:48] VITALS: BP 168/89
--- NOTE | 2023-05-16 04:38 | NUR ---
SHIFT SUMMARY PATIENT IS ALERT AND ORIENTED. PATIENT HAS NOT HAD ANY ACUTE EVENTS THIS SHIFT. PATIENT HAS NOT COMPLAINED OF PAIN, NAUSEA, SOB OR VOMITTING THIS SHIFT. PATIENT HAS BEEN PLEASENT AND COOPERATIVE WITH CARE. IV FLUIDS INFUSED ORDERED. BED IN LOCKED AND LOWEST POSITION. CALL LIGHT IN PLACE. WILL MONITOR UNTIL SHIFT CHANGE.
[2023-05-16 05:17] VITALS: BP 198/101
[2023-05-16 06:12] VITALS: BP 165/87
[2023-05-16 06:35] LABS: Hematocrit 44.9 % (33.0-51.0)
--- NOTE | 2023-05-16 06:38 | NUR ---
NURSE NOTE PATIENT NOTIFED THIS RN OF LOW BLOOD SUGAR FOR HER NORM. CALLED DR TURNER AND OBTAINED ORDERS.
[2023-05-16 07:01] LABS: Magnesium, Blood 2.3 mg/dL (1.6-2.4); Uric Acid, Blood 9.6 mg/dL (2.6-6.0)
[2023-05-16 07:06] LABS: Albumin, Blood 2.7 g/dL (3.4-5.0); Anion Gap 5 mmol/L (6-16); Blood Urea Nitrogen 40 mg/dL (8-24); Bun/Creatinine Ratio 40.2 (12.0-20.0); CO2, Blood 29 mmol/L (21-32); Calcium, Blood 9.8 mg/dL (8.5-10.1); Chloride, Blood 120 mmol/L (98-108); Glomerular Filtration Rate 60 (60-); Glucose, Blood 93 mg/dL (70-99); Phosphorus, Blood 2.9 mg/dL (2.5-4.9); Potassium, Blood 3.3 mmol/L (3.5-5.5); Sodium, Blood 154 mmol/L (136-145)
[2023-05-16 07:26] VITALS: BP 192/96
[2023-05-16 10:08] VITALS: BP 142/71
[2023-05-16 16:05] VITALS: BP 116/64
--- NOTE | 2023-05-16 17:28 | NUR ---
SHIFT SUMMARY PT AOX4, SHE IS A 1 ASSIST WITH THE FWW TO THE BR. ILLEOSTOMY PATENT AND DRAINING, PT INDEPENDENTLY MANAGES IT. PARTIDA PATENT AND DRAINING. NEW IV PLACED THIS SHIFT. PT ADVANCED TO LOW FIBER DIET, SHE IS TOLERATING IT WELL. IS CURRENTLY AT THE BS. SHE IS PLEASANT AND COOPERATIVE WITH CARE. CALL LIGHT WITHIN REACH, BED IN THE LOWEST POSITION. WILL REPORT TO ONCOMING NURSE.
--- NOTE | 2023-05-16 17:35 | NUR ---
NOTE: ATTEMPTED TO CALL DR. MACIAS FOR PT'S RECENT SODIUM LABS PER THE PROVIDERS REQUEST. HE DID NOT ANSWER THE PHONE AND THIS NURSE DID NOT LEAVE A MESSAGE. WILL ATTEMPT AGAIN BEFORE THE SHIFT IS OVER.
--- NOTE | 2023-05-16 18:29 | NUR ---
NOTE: URINE AVAILABLE FROM PT'S URINE COLLECTION LAST NIGHT, LAB SAID THEY COULD USE THAT URINE TO CULTURE. OKAY TO GIVE ABX THIS EVENING PER DR. GONZALEZ.
[2023-05-16 20:38] VITALS: BP 125/72
[2023-05-17 03:39] VITALS: BP 112/69
--- NOTE | 2023-05-17 05:38 | NUR ---
SHIFT SUMMARY PATIENT IS ALERT AND ORIENTED. PATIENT HAS HAD NO ACUTE EVENTS THIS SHIFT. VITAL SIGNS REVIEWED. PATIENT HAS NOT COMPLAINED OF PAIN, SOB, NAUSEA, OR VOMITTING THIS SHIFT. PATIENT HAS HAD D5 INFUSING ALL NIGHT ORDERED. PATIENT HAS IND TAKEN CARE OF ILLESTOMY THIS SHIFT. BED IN LOCKED AND LOWEST POSITION. CALL LIGHT IN PLACE. WILL MONITOR UNTIL SHIFT CHANGE.
[2023-05-17 05:53] LABS: BASOPHILS ABSOLUTE AUTO 0.01 K/mm3 (0.00-0.23); BASOPHILS PERCENT AUTO 0 % (0-2); EOSINOPHILS ABSOLUTE AUTO 0.08 K/mm3 (0.00-0.68); EOSINOPHILS PERCENT AUTO 1 % (0-6); Hematocrit 36.5 % (33.0-51.0); Hemoglobin 12.2 g/dL (11.5-16.0); IMMATURE GRAN ABSOLUTE AUTO 0.03 K/mm3 (0.00-0.10); IMMATURE GRAN PERCENT AUTO 0 % (0-1); LYMPHOCYTES ABSOLUTE AUTO 1.16 K/mm3 (0.84-5.20); LYMPHOCYTES PERCENT AUTO 15 % (21-46); MONOCYTES ABSOLUTE AUTO 1.01 K/mm3 (0.16-1.47); MONOCYTES PERCENT AUTO 13 % (4-13); Mean Corpuscular HGB 32.1 pg (26.0-34.0); Mean Corpuscular HGB Conc 33.4 g/dL (31.5-36.5); Mean Corpuscular Volume 96 fL (80-100); Mean Platelet Volume 9.4 fL (9.1-12.4); NEUTROPHILS ABSOLUTE AUTO 5.68 K/mm3 (1.96-9.15); NEUTROPHILS PERCENT AUTO 71 % (41-73); Platelet Count 174 K/mm3 (150-400); RDW Coefficient Variation 12.3 % (11.7-14.2); RDW Standard Deviation 43.2 fL (35.1-46.3); White Blood Cell Count 7.97 K/mm3 (4.00-11.30)
[2023-05-17 06:13] LABS: Magnesium, Blood 1.5 mg/dL (1.6-2.4)
[2023-05-17 06:20] LABS: Albumin/Globulin Ratio 0.6 (0.8-1.8); Bilirubin, Total 0.7 mg/dL (0.1-1.0); Calcium, Blood 8.8 mg/dL (8.5-10.1); Creatinine, Blood 0.53 mg/dL (0.40-1.00); Globulin, Blood 3.6 g/dL (2.2-4.0); Phosphorus, Blood 1.6 mg/dL (2.5-4.9); Potassium, Blood 3.4 mmol/L (3.5-5.5); Total Protein, Blood 5.6 g/dL (6.4-8.2)
[2023-05-17 07:10] VITALS: BP 142/82
[2023-05-17] MEDS ORDERED: MAGNESIUM OXID500 MG PO (12:01)
[2023-05-17] MEDS ORDERED: K-Phos Origina500 MG PO (12:02)
--- NOTE | 2023-05-17 16:31 | NUR ---
Patient ready for discharge. MD asked RN to remove inman & administer IV magnesium before DC. IV Mag completed, VSS. Patient left unit at 1400.
== END 2023-05-17 13:46 | disposition home or self-care (01) | DRG 389 ==
LOC: ER 18:20 → MEDS 05-12 01:27 → ENPENDDIS 05-17 10:37 → MEDS 05-17 13:46
PROVIDERS: Emergency Medicine; Internal Medicine; Internal Medicine Nephrology; Surgery; ADMIT Student in an Organized Health Care Education/Training Program
DX: K56.600 Partial intestinal obstruction, unspecified as to cause (principal); E87.0 Hyperosmolality and hypernatremia; N13.30 Unspecified hydronephrosis; N17.9 Acute kidney failure, unspecified; E86.0 Dehydration; E78.5 Hyperlipidemia, unspecified; I12.9 Hypertensive chronic kidney disease with stage 1 through stage 4 chronic kidney disease, or unspecified chronic kidney disease; N18.9 Chronic kidney disease, unspecified; J47.9 Bronchiectasis, uncomplicated; M85.80 Other specified disorders of bone density and structure, unspecified site; E11.22 Type 2 diabetes mellitus with diabetic chronic kidney disease; R33.9 Retention of urine, unspecified; E86.9 Volume depletion, unspecified; D18.03 Hemangioma of intra-abdominal structures; M19.90 Unspecified osteoarthritis, unspecified site; G60.9 Hereditary and idiopathic neuropathy, unspecified; M81.0 Age-related osteoporosis without current pathological fracture; E79.0 Hyperuricemia without signs of inflammatory arthritis and tophaceous disease; E88.09 Other disorders of plasma-protein metabolism, not elsewhere classified; E87.6 Hypokalemia; E83.42 Hypomagnesemia; E83.39 Other disorders of phosphorus metabolism; D75.1 Secondary polycythemia; Z90.49 Acquired absence of other specified parts of digestive tract; Z93.2 Ileostomy status; Z85.038 Personal history of other malignant neoplasm of large intestine; Z88.8 Allergy status to other drugs, medicaments and biological substances; Z88.1 Allergy status to other antibiotic agents; Z79.83 Long term (current) use of bisphosphonates; Z85.42 Personal history of malignant neoplasm of other parts of uterus; Z90.710 Acquired absence of both cervix and uterus; Z86.718 Personal history of other venous thrombosis and embolism
CPT/HCPCS: 36415; 74018; 74177; 74250; 80048; 80053; 80069; 81001; 82550; 82947; 83690; 83735; 84100; 84295; 84484; 84550; 85014; 85018; 85025; 87086; 93005; 93010; 96361; 96374; 96375; 99285-25; A9270; C9113; J0360; J0696; J0780; J1170; J1644; J2270; J2405; J2765; J3475; J7030; J7060; J7070; J7120; Q9967

== ENCOUNTER 2023-06-08 13:51 | Inpatient (IN) | payer MEDICARE, OTHER ==
[~2023-06-08] VITALS: Ht 149.9 cm; Wt 44.5 kg
[~2023-06-08 13:51] MED LIST changes: +Amitriptyline H10 MG PO; +FISH OIL 1,2001 EAC7 PO; +FOSAMAX70 MG PO; +K-Phos Origina500 MG PO; +LOSARTAN POTASS25 M2 PO; +MAGNESIUM OXID500 MG PO; +MULVITA PO; +TOCO1000 PO; +VERAPAMIL ER120 M1 PO
[2023-06-08 14:33] LABS: BASOPHILS ABSOLUTE AUTO 0.02 K/mm3 (0.00-0.23); BASOPHILS PERCENT AUTO 0 % (0-2); EOSINOPHILS ABSOLUTE AUTO 0.02 K/mm3 (0.00-0.68); EOSINOPHILS PERCENT AUTO 0 % (0-6); Hematocrit 40.7 % (33.0-51.0); Hemoglobin 14.7 g/dL (11.5-16.0); IMMATURE GRAN ABSOLUTE AUTO 0.04 K/mm3 (0.00-0.10); IMMATURE GRAN PERCENT AUTO 0 % (0-1); LYMPHOCYTES PERCENT AUTO 6 % (21-46); MONOCYTES ABSOLUTE AUTO 1.63 K/mm3 (0.16-1.47); MONOCYTES PERCENT AUTO 15 % (4-13); Mean Corpuscular HGB Conc 36.1 g/dL (31.5-36.5); Mean Corpuscular Volume 89 fL (80-100); Mean Platelet Volume 9.2 fL (9.1-12.4); NEUTROPHILS ABSOLUTE AUTO 8.68 K/mm3 (1.96-9.15); NEUTROPHILS PERCENT AUTO 79 % (41-73); Platelet Count 384 K/mm3 (150-400); RDW Coefficient Variation 11.2 % (11.7-14.2); RDW Standard Deviation 35.8 fL (35.1-46.3); White Blood Cell Count 10.99 K/mm3 (4.00-11.30)
[2023-06-08 14:49] LABS: Albumin, Blood 3.1 g/dL (3.4-5.0); Albumin/Globulin Ratio 0.5 (0.8-1.8); Bilirubin, Total 0.8 mg/dL (0.1-1.0); Bun/Creatinine Ratio 36.7 (12.0-20.0); Calcium, Blood 11.5 mg/dL (8.5-10.1); Creatinine, Blood 1.66 mg/dL (0.40-1.00); Globulin, Blood 5.7 g/dL (2.2-4.0); Magnesium, Blood 2.3 mg/dL (1.6-2.4); Potassium, Blood 4.8 mmol/L (3.5-5.5); Total Protein, Blood 8.8 g/dL (6.4-8.2)
[2023-06-08 15:36] LABS: Source, Urine Clean Catch
[2023-06-08 15:38] LABS: Appearance, Urine Cloudy (Clear); Bilirubin, Urine Neg (Neg); Blood, Urine 3+ (Neg); Color, Urine Yellow (P-Yellow); Glucose Qualitative, Urine Neg (Neg); Ketones, Urine Neg (Neg); Leukocyte Esterase, Urine 3+ (Neg); Nitrite, Urine Neg (Neg); Protein, Urine 2+ (Neg); Urobilinogen, Urine NORM (Normal)
[2023-06-08 15:49] LABS: Bacteria Many /hpf; Red Blood Cells, Urine 0-2 /hpf (0-2); Squamous Epithelial Cells Not Seen /hpf (Few); White Blood Cells, Urine TNTC /hpf (0-5)
[2023-06-08 18:39] LABS: Bun/Creatinine Ratio 35.4 (12.0-20.0); Calcium, Blood 9.8 mg/dL (8.5-10.1); Creatinine, Blood 1.47 mg/dL (0.40-1.00); Potassium, Blood 4.7 mmol/L (3.5-5.5)
[2023-06-08] MEDS ORDERED: LOSA25 PO (20:02)
[2023-06-08 20:04] VITALS: BP 123/72
[2023-06-09 04:02] VITALS: BP 130/72
[2023-06-09 05:04] LABS: BASOPHILS ABSOLUTE AUTO 0.02 K/mm3 (0.00-0.23); BASOPHILS PERCENT AUTO 0 % (0-2); EOSINOPHILS ABSOLUTE AUTO 0.22 K/mm3 (0.00-0.68); EOSINOPHILS PERCENT AUTO 3 % (0-6); Hemoglobin 12.4 g/dL (11.5-16.0); IMMATURE GRAN ABSOLUTE AUTO 0.01 K/mm3 (0.00-0.10); IMMATURE GRAN PERCENT AUTO 0 % (0-1); LYMPHOCYTES ABSOLUTE AUTO 0.56 K/mm3 (0.84-5.20); LYMPHOCYTES PERCENT AUTO 8 % (21-46); MONOCYTES ABSOLUTE AUTO 1.15 K/mm3 (0.16-1.47); MONOCYTES PERCENT AUTO 17 % (4-13); Mean Corpuscular HGB 32.3 pg (26.0-34.0); Mean Corpuscular HGB Conc 35.4 g/dL (31.5-36.5); Mean Corpuscular Volume 91 fL (80-100); Mean Platelet Volume 9.1 fL (9.1-12.4); NEUTROPHILS ABSOLUTE AUTO 4.71 K/mm3 (1.96-9.15); NEUTROPHILS PERCENT AUTO 71 % (41-73); Platelet Count 271 K/mm3 (150-400); RDW Coefficient Variation 11.4 % (11.7-14.2); Red Blood Cell Count 3.84 M/mm3 (3.80-5.20); White Blood Cell Count 6.67 K/mm3 (4.00-11.30)
[2023-06-09 05:35] LABS: Albumin, Blood 2.4 g/dL (3.4-5.0); Albumin/Globulin Ratio 0.5 (0.8-1.8); Bilirubin, Total 0.4 mg/dL (0.1-1.0); Bun/Creatinine Ratio 36.8 (12.0-20.0); Calcium, Blood 9.8 mg/dL (8.5-10.1); Creatinine, Blood 1.14 mg/dL (0.40-1.00); Globulin, Blood 4.7 g/dL (2.2-4.0); Magnesium, Blood 1.8 mg/dL (1.6-2.4); Potassium, Blood 4.1 mmol/L (3.5-5.5); Total Protein, Blood 7.1 g/dL (6.4-8.2)
--- NOTE | 2023-06-09 07:13 | NUR ---
PT arrived A/O VSS NO C/O PAIN. ADMISSION DONE, PT HAS ILIOSTOMY CALLED GREGORIO STOMA LOOK RED AND BEEFY AND DRANING SOFT BROWN ORANGE STOOL. ASSISTED PT TO BATH ROOM AND DID VERY WELL WITH AMBULATION, PT CALLS APPROPRIATLY, AND IS QUIETLY LAYING IN BED.
[2023-06-09 07:28] VITALS: BP 129/71
[2023-06-09 15:39] LABS: Bun/Creatinine Ratio 33.8 (12.0-20.0); Calcium, Blood 9.1 mg/dL (8.5-10.1); Creatinine, Blood 0.86 mg/dL (0.40-1.00); Potassium, Blood 4.3 mmol/L (3.5-5.5)
[2023-06-09 16:04] VITALS: BP 131/76
--- NOTE | 2023-06-09 18:36 | NUR ---
PLEASANT AND COOPERATIVE, MAKES NEEDS KNOWN, NO ACUTE CHANGES, INDEPEDANT WITH ILEOSTOMY CARE, AT BEDSIDE NOW AND DR CASTLE, SODIUM STILL 126, POOR APPETITE, STAND BY ASSIST WITH THE FWW, ALERT AND ORIENTED X4, CALL LIGHT WITH IN REACH, WILL RELAY TO PM RN
[2023-06-09 19:08] VITALS: BP 130/77
[2023-06-10 03:37] LABS: Bun/Creatinine Ratio 25.2 (12.0-20.0); Calcium, Blood 8.5 mg/dL (8.5-10.1); Creatinine, Blood 0.83 mg/dL (0.40-1.00); Potassium, Blood 4.6 mmol/L (3.5-5.5)
[2023-06-10 03:59] VITALS: BP 127/70
[2023-06-10 08:02] VITALS: BP 125/66
[2023-06-10] MEDS ORDERED: AMOX875 PO (11:53)
[2023-06-10] MEDS ORDERED: SODCHL1 PO (11:54)
== END 2023-06-10 13:23 | disposition home or self-care (01) | DRG 682 ==
LOC: ER 13:51 → MEDS 18:47 → ENPENDDIS 06-10 11:23 → MEDS 06-10 13:23
PROVIDERS: Emergency Medicine; Physician Assistant; ADMIT Internal Medicine
DX: N17.9 Acute kidney failure, unspecified (principal); G93.41 Metabolic encephalopathy; E87.1 Hypo-osmolality and hyponatremia; N13.6 Pyonephrosis; E86.0 Dehydration; I10 Essential (primary) hypertension; M19.90 Unspecified osteoarthritis, unspecified site; E78.5 Hyperlipidemia, unspecified; K75.81 Nonalcoholic steatohepatitis (NASH); E86.1 Hypovolemia; G60.9 Hereditary and idiopathic neuropathy, unspecified; M81.0 Age-related osteoporosis without current pathological fracture; Z93.1 Gastrostomy status; Z85.038 Personal history of other malignant neoplasm of large intestine; Z85.42 Personal history of malignant neoplasm of other parts of uterus; Z87.19 Personal history of other diseases of the digestive system; Z90.49 Acquired absence of other specified parts of digestive tract; Z86.718 Personal history of other venous thrombosis and embolism
CPT/HCPCS: 36415; 51701; 71045; 74177; 80048; 80053; 81001; 83735; 84443; 84484; 85025; 87077; 87086; 87186; 93005; 93010; 96361; 96365; 96375; 97110; 97161; 97530; 99285-25; A9270; J0696; J1650; J2405; J7030; Q9967

== ENCOUNTER → 2023-07-09 | Outpatient (CLI) | payer MEDICARE, OTHER ==
[~2023-07-09] MED LIST changes: +AMOX875 PO; +SODCHL1 PO
== END ==
LOC: LAB 10:09 → LAB SHORT 10:09
DX: N39.0 Urinary tract infection, site not specified (principal)
CPT/HCPCS: 87077; 87086; 87186

== ENCOUNTER 2023-08-01 11:29 | Day surgery (SDC) | payer MEDICARE, OTHER ==
[~2023-08-01] VITALS: Ht 149.9 cm; Wt 49.8 kg
[~2023-08-01 11:29] MED LIST changes: +Aspir 8181 MG PO; +Atropine Sulfate 0.1 MG/ML 10ML SYR ONE; -FISH OIL 1,2001 EAC7 PO; +Glycopyrrolate 0.2 MG/ML 1MLVIAL ONE; +Lactated Ringer's 1,000 ML IV ONE; +Lidocaine 2% 5 ML SDV ONE; +Lidocaine HCl/Pf 1% 5 ML VIAL ONE; +MULTIPLE VITAM1 EACH PO; +Methylene Blue 1% 100 MG/10 ML VIAL ONE; +OMEGA-3 FISH O1 EA20; +Ondansetron HCl 2 MG / ML 2ML Vial ONE; +THERA-D2000 UNIT PO; +ePHEDrine Sulfate 50 MG/ML 1ML Injection ONE; +propofoL 50 ML IV ONE
[2023-08-01] MEDS ORDERED: 1/2 NS 250ml250 ML (12:09)
[2023-08-01] MEDS ORDERED: TOCO1000 (12:09)
[2023-08-01] MEDS ORDERED: POTA10T (12:09)
[2023-08-01] MEDS ORDERED: Lactated Ringer's 1,000 ML IV ONE (12:37)
[2023-08-01 13:24] VITALS: BP 116/71
== END 2023-08-01 13:26 | disposition home or self-care (01) ==
LOC: ORSCSDS 11:29
PROVIDERS: Internal Medicine Gastroenterology
PROC: 0DJ08ZZ Inspection of Upper Intestinal Tract, Via Natural or Artificial Opening Endoscopic (ICD-10-PCS; principal; 2023-08-01 12:45)
DX: Z87.19 Personal history of other diseases of the digestive system (principal); Z15.09 Genetic susceptibility to other malignant neoplasm; Z85.038 Personal history of other malignant neoplasm of large intestine; Z80.0 Family history of malignant neoplasm of digestive organs; Z79.82 Long term (current) use of aspirin; Z79.899 Other long term (current) drug therapy
CPT/HCPCS: J0461; J2001; J2405; J2704; J7120; Q9968

== ENCOUNTER 2023-10-21 07:41 | Emergency (ER) | payer MEDICARE, OTHER ==
[~2023-10-21] VITALS: Ht 152.4 cm; Wt 63.5 kg
[2023-10-21 13:03] VITALS: BP 105/63
== END 2023-10-21 13:04 | disposition home or self-care (01) ==
LOC: ER 07:41
DX: K52.9 Noninfective gastroenteritis and colitis, unspecified (principal); R33.9 Retention of urine, unspecified; E87.1 Hypo-osmolality and hyponatremia; E87.6 Hypokalemia; I10 Essential (primary) hypertension; Z93.2 Ileostomy status; Z79.899 Other long term (current) drug therapy; Z88.1 Allergy status to other antibiotic agents; Z88.8 Allergy status to other drugs, medicaments and biological substances

== ENCOUNTER 2023-12-24 03:21 | Observation (INO) | payer MEDICARE, OTHER ==
[~2023-12-24] VITALS: Ht 149.9 cm; Wt 49.9 kg
[~2023-12-24 03:21] MED LIST changes: +1/2 NS 250ml250 ML; -Atropine Sulfate 0.1 MG/ML 10ML SYR ONE; +DICY20 PO; -Glycopyrrolate 0.2 MG/ML 1MLVIAL ONE; -Lactated Ringer's 1,000 ML IV ONE; -Lidocaine 2% 5 ML SDV ONE; -Lidocaine HCl/Pf 1% 5 ML VIAL ONE; -Methylene Blue 1% 100 MG/10 ML VIAL ONE; -Ondansetron HCl 2 MG / ML 2ML Vial ONE; +POTA10T; -ePHEDrine Sulfate 50 MG/ML 1ML Injection ONE; -propofoL 50 ML IV ONE
[2023-12-24] MEDS ORDERED: NS 1,000 ML IV SCH (03:30)
[2023-12-24 03:49] LABS: BASOPHILS ABSOLUTE AUTO 0.03 K/mm3 (0.00-0.23); BASOPHILS PERCENT AUTO 0 % (0-2); EOSINOPHILS PERCENT AUTO 0 % (0-6); Hematocrit 43.7 % (33.0-51.0); Hemoglobin 15.1 g/dL (11.5-16.0); IMMATURE GRAN ABSOLUTE AUTO 0.03 K/mm3 (0.00-0.10); IMMATURE GRAN PERCENT AUTO 0 % (0-1); LYMPHOCYTES ABSOLUTE AUTO 0.77 K/mm3 (0.84-5.20); LYMPHOCYTES PERCENT AUTO 8 % (21-46); MONOCYTES ABSOLUTE AUTO 0.41 K/mm3 (0.16-1.47); MONOCYTES PERCENT AUTO 4 % (4-13); Mean Corpuscular HGB 31.8 pg (26.0-34.0); Mean Corpuscular HGB Conc 34.6 g/dL (31.5-36.5); Mean Corpuscular Volume 92 fL (80-100); Mean Platelet Volume 9.1 fL (9.1-12.4); NEUTROPHILS ABSOLUTE AUTO 8.38 K/mm3 (1.96-9.15); NEUTROPHILS PERCENT AUTO 87 % (41-73); Platelet Count 220 K/mm3 (150-400); RDW Coefficient Variation 12.6 % (11.7-14.2); RDW Standard Deviation 43.2 fL (35.1-46.3); Red Blood Cell Count 4.75 M/mm3 (3.80-5.20); White Blood Cell Count 9.62 K/mm3 (4.00-11.30)
[2023-12-24] MEDS ORDERED: Amitriptyline H10 MG PO (04:45)
[2023-12-24] MEDS ORDERED: LOSA25 PO (04:45)
[2023-12-24 05:52] LABS: Albumin, Blood 3.8 g/dL (3.4-5.0); Bilirubin, Total 1.4 mg/dL (0.1-1.0); Bun/Creatinine Ratio 20.6 (12.0-20.0); Calcium, Blood 9.8 mg/dL (8.5-10.1); Creatinine, Blood 0.53 mg/dL (0.40-1.00); Globulin, Blood 3.8 g/dL (2.2-4.0); Potassium, Blood 3.5 mmol/L (3.5-5.5); Total Protein, Blood 7.6 g/dL (6.4-8.2)
[2023-12-24 06:34] LABS: Source, Urine Clean Catch
[2023-12-24 06:36] LABS: Appearance, Urine Clear (Clear); Bilirubin, Urine Neg (Neg); Blood, Urine 1+ (Neg); Color, Urine Yellow (P-Yellow); Glucose Qualitative, Urine Neg (Neg); Ketones, Urine Neg (Neg); Leukocyte Esterase, Urine Neg (Neg); Nitrite, Urine Neg (Neg); Protein, Urine 2+ (Neg); Urobilinogen, Urine NORM (Normal)
[2023-12-24 06:48] LABS: Bacteria Rare /hpf; Squamous Epithelial Cells Rare /hpf (Few); White Blood Cells, Urine Not Seen /hpf (0-5)
[2023-12-24] MEDS ORDERED: Prochlorperazine Edisylate 10 mg Vial IV ONE (07:45)
[2023-12-24] MEDS ORDERED: Ondansetron HCl 2 MG / ML 2ML Vial IV PRN (08:25)
[2023-12-24] MEDS ORDERED: Losartan Potassium 25 MG Tab PO SCH (09:00)
[2023-12-24] MEDS ORDERED: Docosahexanoic Acid/EPA 1,000 MG CAP PO SCH (09:00)
[2023-12-24] MEDS ORDERED: Cholecalciferol 1000 Unit Tablet (=25MCG) PO SCH (09:00)
[2023-12-24] MEDS ORDERED: Multivitamins/Minerals 1 Tab PO SCH (09:00)
[2023-12-24] MEDS ORDERED: Pregabalin 50 MG Capsule PO SCH (09:00)
[2023-12-24 09:33] VITALS: BP 172/86
--- NOTE | 2023-12-24 10:17 | NUR ---
ARRIVAL DENIES ARRIVED TO UNIT FROM ER VIA GURNEY, ABLE TO STAND AND TRANSFER TO BED INDEPENDENTLY. LARGE BAG ON ILEOSTOMY APPLIANCE WITH RED CATHETER INSERTED INTO STOMA. NO STOOL IN BAG, FLATUS IN BAG. PT DENIES PAIN OR NAUSEA AND REPORTS FEELING TIRED. PT IS NPO PENDING SURGICAL CONSULT. PT AGREEABLE. CALL LIGHT PROVIDED AND IN REACH. DENIES FURTHER NEEDS AT THIS TIME.
[2023-12-24] MEDS ORDERED: Calcium Carbon500 MG PO (11:17)
[2023-12-24] MEDS ORDERED: ALPHA LIPOIC A600 MG PO (11:18)
[2023-12-24] MEDS ORDERED: HydrALAZINE HCl 20 MG / ML 1ML Vial IV PRN (13:25)
--- NOTE | 2023-12-24 14:05 | NUR ---
PT CONTINUES TO REPORT NAUSEA. LIQUID BROWN IN OSTOMY BAG. PT REPORTS THAT IS ALL THAT HAS BEEN PASSING RECENTLY. HAS HAD FEW EPISODES OF NAUSEA.
[2023-12-24 16:19] VITALS: BP 166/93
--- NOTE | 2023-12-24 16:30 | NUR ---
SHIFT SUMMARY PT HAS CONTINUED TO DENY PAIN DURING SHIFT. NO NAUSEA REPORTED UNLESS SHE EATS OR DRINKS. ILEOSTOMY CONTINUES TO HAVE LIQUID BROWN OUTPUT. PT CONTINUES TO ENDORSE DISCOMFORT. SHE REMAINS NPO AND CALLS APPROPRIATLY. REPOSITIONING SELF IN BED FREQUENTLY.
[2023-12-24] MEDS ORDERED: Verapamil HCL 120 MG TABCR PO SCH (18:00)
[2023-12-24 19:50] VITALS: BP 139/85
[2023-12-24] MEDS ORDERED: Amitriptyline HCl 10 MG Tab PO SCH (21:00)
[2023-12-25 04:46] VITALS: BP 103/65
[2023-12-25 04:51] LABS: BASOPHILS ABSOLUTE AUTO 0.03 K/mm3 (0.00-0.23); BASOPHILS PERCENT AUTO 1 % (0-2); EOSINOPHILS ABSOLUTE AUTO 0.08 K/mm3 (0.00-0.68); EOSINOPHILS PERCENT AUTO 1 % (0-6); IMMATURE GRAN ABSOLUTE AUTO 0.01 K/mm3 (0.00-0.10); IMMATURE GRAN PERCENT AUTO 0 % (0-1); LYMPHOCYTES ABSOLUTE AUTO 1.45 K/mm3 (0.84-5.20); LYMPHOCYTES PERCENT AUTO 22 % (21-46); MONOCYTES ABSOLUTE AUTO 0.71 K/mm3 (0.16-1.47); MONOCYTES PERCENT AUTO 11 % (4-13); Mean Corpuscular HGB 31.3 pg (26.0-34.0); Mean Corpuscular HGB Conc 33.3 g/dL (31.5-36.5); Mean Corpuscular Volume 94 fL (80-100); NEUTROPHILS PERCENT AUTO 65 % (41-73); Platelet Count 198 K/mm3 (150-400); RDW Coefficient Variation 13.2 % (11.7-14.2); RDW Standard Deviation 46.3 fL (35.1-46.3); Red Blood Cell Count 4.15 M/mm3 (3.80-5.20); White Blood Cell Count 6.48 K/mm3 (4.00-11.30)
--- NOTE | 2023-12-25 05:52 | NUR ---
SHIFT SUMMARY PT HAS RESTED T/O THE NIGHT. PT HAS DENIES NAUSEA, BOWEL TONES ARE HYPERACTIVE. PT HAS BEEN INDEPENDENT IN THE ROOM. ASESSMENT AND PLAN OF CARE UNCHANGED. BED IN LOWEST POSITION, CALL LIGHT WITHIN REACH.
[2023-12-25 07:21] VITALS: BP 124/70
[2023-12-25 08:20] LABS: Bun/Creatinine Ratio 22.2 (12.0-20.0); Calcium, Blood 8.8 mg/dL (8.5-10.1); Creatinine, Blood 0.68 mg/dL (0.40-1.00); Potassium, Blood 3.5 mmol/L (3.5-5.5)
[2023-12-25] MEDS ORDERED: Enoxaparin 40 MG/0.4 ML SYR SC SCH (09:00)
--- NOTE | 2023-12-25 12:37 | NUR ---
DISCHARGE: PACKET PRINTED AND PT EDUCATED. IV DC'D WNL TIP INTACT. NO SCRIPTS NEEDED. PT DENIED NEED FOR WHEELCHAIR AND LEFT UNIT ON FOOT.
== END 2023-12-25 13:28 | disposition home or self-care (01) ==
LOC: ER 03:21 → SURS 09:05
PROVIDERS: Emergency Medicine; Physician Assistant; ADMIT Internal Medicine
DX: K94.13 Enterostomy malfunction (principal); K56.690 Other partial intestinal obstruction; N13.30 Unspecified hydronephrosis; Z15.09 Genetic susceptibility to other malignant neoplasm; Z85.038 Personal history of other malignant neoplasm of large intestine; Z90.49 Acquired absence of other specified parts of digestive tract; I10 Essential (primary) hypertension; N32.89 Other specified disorders of bladder; E78.5 Hyperlipidemia, unspecified; M85.80 Other specified disorders of bone density and structure, unspecified site; Z88.1 Allergy status to other antibiotic agents; Z88.8 Allergy status to other drugs, medicaments and biological substances; Z79.899 Other long term (current) drug therapy
CPT/HCPCS: 36415; 74177; 80048; 80053; 81001; 85025; 93005; 93010; 96361; 96374-59; 99285-25; A9270; G0378; J0780; J7030; Q9967